=== PATIENT | female | born 1935 | race Caucasian/White ===

== ENCOUNTER 2017-01-11 20:59 | Inpatient (IN) ==
[2017-01-11] MEDS ORDERED: ONDANSETRON 4 MG/2 ML VIAL IV STA (22:07)
[2017-01-11] MEDS ORDERED: CEFTAROLINE 600 MG in SODIUM CHLORIDE 0.9% 100 ML IV STA (22:07)
[2017-01-11] MEDS ORDERED: MORPHINE 2 MG/1 ML SYRINGE IV STA (22:07)
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
[2017-01-11] MEDS ORDERED: MORPHINE 2 MG/1 ML SYRINGE ONE (23:00)
[2017-01-11] MEDS ORDERED: ONDANSETRON 4 MG/2 ML VIAL ONE (23:00)
[2017-01-11] MEDS ORDERED: CEFTAROLINE 600 MG VIAL IV ONE (23:02)
[2017-01-11 23:11] LABS: Basophils # 0.1 10*3/uL (0.0-0.2); Basophils % 0.4 % (0.0-0.8); Eosinophils # 0.5 10*3/uL (0.0-0.87); Eosinophils % 3.5 % (0.00-10.9); Hematocrit 32.1 VOL% (35.7-47.0); Hemoglobin 10.8 GM/DL (12.0-16.0); Immature Granulocytes % 0.4 %; Immature Granulocytes Absolute 0.06 #; Lymphocytes # 2.6 10*3/uL (1.4-4.0); Lymphocytes % 19.3 % (21.3-54.2); Mean Corpuscular HGB Conc 33.6 GM/DL (32-36); Mean Corpuscular Hemoglobin 28 PG (27-34); Mean Corpuscular Volume 83.2 FL (87-102); Mean Platelet Volume 10.4 FL (9.6-12.0); Monocytes # 0.7 10*3/uL (0.11-0.8); Monocytes % 4.9 % (1.7-12.7); Neutrophils # 9.7 10*3/uL (1.4-7.4); Neutrophils % 71.5 % (38.7-73.9); Platelet Count 291 T/CUMM (130-400); Red Blood Count 3.86 MC/CUMM (3.8-5.5); Red Cell Distribution Width 13.9 % (9.3-17.3); White Blood Count 13.6 T/CUMM (4-12)
[2017-01-11 23:27] LABS: PT Patient Result 11.1 SECS
[2017-01-11 23:29] LABS: Alanine Aminotransferase 22 U/L (13-56); Albumin 2.9 G/DL (3.4-5.0); Alkaline Phosphatase 105 U/L (45-117); Aspartate Amino Transferase 31 U/L (0-37); Bilirubin,Total < 0.39 MG/DL (0.2-1.0); Blood Urea Nitrogen 32 MG/DL (7-18); Calcium 8.9 MG/DL (8.5-10.1); Glucose 158 MG/DL (74-106); Osmolality,Calculated 282.8 MOS/KG (273-304); Potassium 3.6 MMOL/L (3.5-5.1); Sodium 137 MMOL/L (136-145); Total Protein 7.3 G/DL (6.4-8.3)
[2017-01-11 23:31] LABS: Troponin I Only < 0.015 NG/ML (0.00-0.045)
[2017-01-11 23:58] LABS: Apearance,Urine CLEAR (Clear); Bilirubin,Urine Negative (Negative); Blood, Urine Small mg/dL (Negative); Glucose,Urine (UA) Negative (Negative); Ketones,Urine Negative (Negative); Mucus,Urine Occasional /LPF (Occasional); Nitrite,Urine Negative (Negative); Protein,Urine Negative; RBC,Urine <1 /HPF (0-4); Urine Color Straw (Yellow); Urine Specific Gravity 1.008 (1.001-1.035); Urine Urobilinogen < 2.0 EU/DL (0.2-1.0); WBC,Urine 3 /HPF (0-6)
[2017-01-12 01:33] LABS: Band Neutrophils 2 % (0-10); Eosinophils 1 % (0-10); Lymphocytes 26 % (20-55); Segmented Neutrophils 65 % (50-85)
[2017-01-12 01:34] LABS: Platelet Estimate Normal; Total Cells Counted 100
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
[2017-01-12] MEDS ORDERED: MORPHINE 2 MG/1 ML SYRINGE IV PRN (01:52)
[2017-01-12] MEDS ORDERED: DEXTROSE 50% 25 GM/50 ML SYRINGE IV PRN (01:52)
[2017-01-12] MEDS ORDERED: ONDANSETRON 4 MG/2 ML VIAL IV PRN (01:52)
[2017-01-12] MEDS ORDERED: GLUCAGON 1 MG VIAL IM PRN (01:52)
[2017-01-12] MEDS: SODIUM CHLORIDE 0.9% 1,000 ML IV SCH ×2 (03:15→21:13)
--- NOTE | 2017-01-12 04:07 | EKG Report ---
Stationary ECG Study [facility] ER Test Date: 01/12/2017 12:02:17 AM Pat Name: AMY GATES Department: Room: 265 Gender: F Tmr Teacher: : 1935 Requested by: Alejandro Andersen Order Number: [id number] Reading MD: NICANOR AL Intervals Jean Rate: 62 P: 50 SD: 199 QRS: -9 QRSD: 94 T: 53 QT: 453 QTc: 458 Interpretive Statements SINUS RHYTHM Electronically Signed On 01-12-17 13:06:14 CDT by NICANOR AL [email or web address]
--- NOTE | 2017-01-12 06:42 | CT Report ---
CT head/brain wo con Indication: Head pain Comparison: None Technique: Multiple axial tomographic images of the brain were obtained without the use of intravenous contrast. Findings: Midline structures are nondisplaced. There is no convincing evidence of acute intracranial hemorrhage . No convincing evidence of hydrocephalus. Moderate global volume loss present. Moderate periventricular and subcortical hypoattenuation noted which is nonspecific but consistent with chronic microvascular ischemic change. Demyelinating process and vasculitis less likely considerations. Atherosclerotic calcifications demonstrated. Large left frontal scalp hematoma which extends to the left periorbital region. The visualized paranasal sinuses and bilateral mastoid air cells are predominantly clear. IMPRESSION: Large left frontal scalp hematoma which extends to the left periorbital region. No acute intracranial hemorrhage. Probable chronic microvascular ischemic change and volume loss. Preliminary report was issued by [facility]. The CT exam was performed using one or more of the following dose reduction techniques: Automated exposure control, adjustment of the mA and/or kV according to patient size, or use of iterative reconstruction technique. PROCEDURE INTERPRETED AT [facility] DEPARTMENT OF RADIOLOGY Final Report Signed by: Dr Tomasz Luis
[2017-01-12 06:45] LABS: Basophils % 0.3 % (0.0-0.8); Eosinophils # 0.5 10*3/uL (0.0-0.87); Hematocrit 28.9 VOL% (35.7-47.0); Hemoglobin 9.6 GM/DL (12.0-16.0); Immature Granulocytes % 0.3 %; Immature Granulocytes Absolute 0.04 #; Lymphocytes # 3.6 10*3/uL (1.4-4.0); Lymphocytes % 27.1 % (21.3-54.2); Mean Corpuscular HGB Conc 33.2 GM/DL (32-36); Mean Corpuscular Hemoglobin 28 PG (27-34); Mean Corpuscular Volume 84.3 FL (87-102); Monocytes # 0.6 10*3/uL (0.11-0.8); Monocytes % 4.7 % (1.7-12.7); Neutrophils # 8.5 10*3/uL (1.4-7.4); Neutrophils % 63.6 % (38.7-73.9); Platelet Count 305 T/CUMM (130-400); Red Blood Count 3.43 MC/CUMM (3.8-5.5); Red Cell Distribution Width 13.7 % (9.3-17.3); White Blood Count 13.3 T/CUMM (4-12)
--- NOTE | 2017-01-12 06:47 | CT Report ---
CT cervical spine wo con Indication: Neck pain Comparison: None Technique: Multiple axial tomographic images of the cervical spine were obtained without the use of intravenous contrast. Coronal and sagittal reformatted images provided. Findings: Straightening of normal cervical lordosis which may be positional or secondary to muscle spasm. 1 mm retrolisthesis of C5 upon C6. 1 mm anterolisthesis of C4 upon C5. 3 mm anterolisthesis of C7 upon T1. Moderate to severe loss of disc space height at C5-6 and C6-7 with mild marginal vertebral body osteophyte formation noted at these levels as well as uncovertebral joint hypertrophy. Moderate neuroforaminal narrowing on the left at C5-6 and C6-7. No gross evidence of significant spinal canal narrowing. Scattered posterior facet arthropathy. Vertebral body heights appear maintained. IMPRESSION: No convincing CT evidence of acute injury involving the osseous cervical spine. Degenerative change and malalignment of the cervical spine as detailed above. Preliminary report was issued by [facility]. The CT exam was performed using one or more of the following dose reduction techniques: Automated exposure control, adjustment of the mA and/or kV according to patient size, or use of iterative reconstruction technique. PROCEDURE INTERPRETED AT [facility] DEPARTMENT OF RADIOLOGY Final Report Signed by: Dr Tomasz Luis
--- NOTE | 2017-01-12 06:54 | CT Report ---
CT facial bones wo con Indication: Fall left side face hematoma Comparison: None Technique: Multiple axial tomographic images of the facial bones were obtained without the use of intravenous contrast. Coronal and sagittal reformatted images provided. Findings: Large left frontal scalp/left periorbital hematoma. No acute facial bone fracture. The visualized paranasal sinuses and bilateral mastoid air cells are predominantly clear. IMPRESSION: No acute facial bone fracture. Preliminary report was issued by [facility]. The CT exam was performed using one or more of the following dose reduction techniques: Automated exposure control, adjustment of the mA and/or kV according to patient size, or use of iterative reconstruction technique. PROCEDURE INTERPRETED AT [facility] DEPARTMENT OF RADIOLOGY Final Report Signed by: Dr Tomasz Luis
[2017-01-12 07:27] LABS: Troponin I Only < 0.015 NG/ML (0.00-0.045)
--- NOTE | 2017-01-12 07:32 | XRay Report ---
XR pelvis AP 1 or 2 Views Indication: Pelvic pain Comparison: None Technique: Single frontal view of the pelvis. Findings: Diffuse osteopenia and body habitus limit examination. No gross evidence of acute fracture. Degenerative change of the lower lumbar spine noted. IMPRESSION: As above. PROCEDURE INTERPRETED AT [facility] DEPARTMENT OF RADIOLOGY Final Report Signed by: Dr Tomasz Luis
--- NOTE | 2017-01-12 07:36 | XRay Report ---
XR chest 1V portable Indication: SOB Comparison: Chest x-ray dated March 28, 2016 Technique: Single frontal view of the chest. Findings: Continued cardiomegaly. There is a nonspecific reticular pattern throughout the bilateral lungs suspicious for interstitial pulmonary edema, interstitial pneumonia, or other interstitial lung disease. Mild right basilar atelectasis/consolidation. Small left pleural fluid not excluded. Visualized osseous and surrounding soft tissue structures appear grossly unchanged. IMPRESSION: As above. PROCEDURE INTERPRETED AT [facility] DEPARTMENT OF RADIOLOGY Final Report Signed by: Dr Tomasz Luis
[2017-01-12 07:37] LABS: Albumin 2.6 G/DL (3.4-5.0); Bilirubin,Total 0.5 MG/DL (0.2-1.0); Calcium 8.5 MG/DL (8.5-10.1); Magnesium 2.1 MG/DL (1.8-2.4); Osmolality,Calculated 286.3 MOS/KG (273-304); Potassium 3.7 MMOL/L (3.5-5.1); Risk Ratio 2.68; Thyroid Stimulating Hormone 1.7 uIU/ml (0.358-3.74); Total Protein 5.7 G/DL (6.4-8.3); VLDL CHOLESTEROL 19.4 MG/DL
--- NOTE | 2017-01-12 08:19 | Ultrasound Report ---
US venous doppler LE BI Indication: Lower extremity pain. Comparison: No relevant comparison.. Technique: Grayscale, spectral, and color Doppler interrogation of the bilateral lower extremity veins was performed. Augmentation and compression was performed. Findings: Grayscale, color Doppler, and pulsed Doppler evaluation of the veins of the bilateral lower extremity demonstrates no evidence of deep venous thrombosis. IMPRESSION: No evidence of deep venous thrombosis in either lower extremity. PROCEDURE INTERPRETED AT [facility] DEPARTMENT OF RADIOLOGY Final Report Signed by: Dr Tomasz Luis
[2017-01-12] MEDS: PANTOPRAZOLE 40 MG TABLET PO SCH (08:41)
[2017-01-12] MEDS: INSULIN REGULAR 100 UNIT/ML SUBCUT SCH ×4 (08:42→21:13)
--- NOTE | 2017-01-12 09:08 | XRay Report ---
Portable chest Date: 01/12/2017 Clinical history: Shortness of breath Comparison: 01/11/2017 Technique: Portable AP sitting chest Findings: Stable cardiomegaly and apparent left cardiac fat pads. Reduced atelectasis in the lungs with less prominent localized eventration of the right hemidiaphragm. Decreased density at the left lung base. Postoperative findings in the left axilla. Stable mediastinum and osseous structures. Impression: Reduced atelectasis with persistent cardiomegaly. PROCEDURE INTERPRETED AT [facility] DEPARTMENT OF RADIOLOGY Final Report Signed by: Dr. Monserrat Foster
--- NOTE | 2017-01-12 09:22 | EKG Report ---
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
[2017-01-12] MEDS ORDERED: SKIN HEALING OINT (AQUAPHOR) 50 GM TUBE TOP PRN (10:19)
[2017-01-12] MEDS: CEFTAROLINE 400 MG in SODIUM CHLORIDE 0.9% 100 ML IV SCH ×2 (11:08→23:09)
[2017-01-12] MEDS: DESITIN 4OZ/NYSTATIN 15 GRAM MIXTURE PASTE TOP SCH ×2 (14:30→22:54)
--- NOTE | 2017-01-12 16:05 | Hospitalist Progress Note ---
Assessment and Plan - Time spent with patient Time spent with patient: Greater than 30 minutes (1) Ground-level mechanical fall Status: Acute Assessment and plan: 01/12/2017: Patient has multiple chronic medical problems that increase her fall risk. She is confident that her fall was not related to syncope or near syncope. She is hesitant to agree to my recommendation to accept swing bed rehabilitation. She is concerned that she will be placed in a skilled nursing and not allowed to return to her home. I interviewed and examined this patient with her granddaughter and 2 sons present at bedside. They will continue to explain the advantages and hopefully convince patient to agree to swing bed rehab. I recommend continued neuro checks, telemetry monitoring, physical and occupational therapy assessment. I reviewed patient's management with hospital wound nurse specialist. No acute fracture or dislocation reported on face CT, C -spine CT, chest x-ray, head CT, pelvic x-rays. Physical and occupational therapy consults requested. I recommend that patient except swing bed rehabilitation. Current Visit: Yes (2) Lymphedema of leg Status: Chronic Assessment and plan: 01/12/2017: Patient reports that she has a lymphedema pump at home but is dissatisfied that does not help reduce leg swelling. She has secondary superficial cellulitis related to scratching anterior tibia surface. Recommend oral antibiotic coverage such as doxycycline or perhaps Septra DS. Current Visit: Yes (3) Cellulitis of left lower extremity Status: Acute Current Visit: Yes (4) Facial contusion Status: Acute Current Visit: Yes (5) Anemia Status: Chronic Current Visit: Yes (6) Stage III chronic kidney disease Status: Acute Current Visit: Yes (7) Type 2 diabetes mellitus Status: Chronic Assessment and plan: 01/12/2017: Hemoglobin A1c measures 10.5%. Patient has normal range TSH (1.7) with slightly increased free T4 level (1.48). Current Visit: Yes Hospitalist: Subjective Interval history: Patient is an 81-year-old female admitted for evaluation after a ground-level mechanical fall. Patient has chronic lymphedema and generalized weakness. Yesterday she stumbled as she tried to quickly walk to answer her telephone. She did strike her head on furniture and she fell. She denies prefall dizziness, lightheadedness, shortness of breath, or chest pain. Patient 's granddaughter, and 2 sons were present at bedside at the time of my interview and exam today. Exam - Constitutional Vitals: Period Temp Pulse Resp BP Sys/Mohan Pulse Ox Last 24 Hr 96.8 F-98.1 F 61-76 12-18 112-151/46-63 87-100 General appearance: morbidly obese - Head Head exam: Present: abrasion, contusion, hematoma, laceration - Eye Eye exam: Present: other (Left parietal scalp and left face hematoma and ecchymosis; no restricted movement of left eye globe.) - Neck Neck exam: Absent: meningismus, tenderness - Respiratory Respiratory exam: Present: clear to auscultation bilaterally. Absent: rales, wheezes - Cardiovascular Cardiovascular exam: Present: regular rate and rhythm - GI/Abdominal GI/Abdominal exam: Present: normal bowel sounds, distended, soft, other (Obese) . Absent: rebound - Extremities Exam Extremities exam: Present: edema, other (Chronic left lower leg lymphedema changes. Patient also has venous stasis dermatitis hyperpigmentation changes both lower legs. She has serosanguineous fluid drainage related to left lower leg lymphedema. Several anterior tibial surface distal segment superficial excoriations). Absent: calf tenderness - Back Exam Back exam: Absent: CVA tenderness (L), CVA tenderness (R) - Neurological Exam Neurological exam: Present: alert, oriented X3 - Psychiatric Psychiatric exam: Present: normal mood - Skin Skin exam: Present: normal color, warm, other (Lymphedema and venous stasis changes as described.) Results - Labs CBC & BMP: 01/12/17 04:48 01/12/17 04:48 - Impressions 01/12/2017: Midline structures are nondisplaced. There is no convincing evidence of acute intracranial hemorrhage . No convincing evidence of hydrocephalus. Moderate global volume loss present. Moderate periventricular and subcortical hypoattenuation noted which is nonspecific but consistent with chronic microvascular ischemic change. Demyelinating process and vasculitis less likely considerations. Atherosclerotic calcifications demonstrated. Large left frontal scalp hematoma which extends to the left periorbital region. The visualized paranasal sinuses and bilateral mastoid air cells are predominantly clear. IMPRESSION: Large left frontal scalp hematoma which extends to the left periorbital region. No acute intracranial hemorrhage. Probable chronic microvascular ischemic change and volume loss. Large left frontal scalp/left periorbital hematoma. No acute facial bone fracture. The visualized paranasal sinuses and bilateral mastoid air cells are predominantly clear. IMPRESSION: No acute facial bone fracture. Straightening of normal cervical lordosis which may be positional or secondary to muscle spasm. 1 mm retrolisthesis of C5 upon C6. 1 mm anterolisthesis of C4 upon C5. 3 mm anterolisthesis of C7 upon T1. Moderate to severe loss of disc space height at C5-6 and C6-7 with mild marginal vertebral body osteophyte formation noted at these levels as well as uncovertebral joint hypertrophy. Moderate neuroforaminal narrowing on the left at C5-6 and C6-7. No gross evidence of significant spinal canal narrowing. Scattered posterior facet arthropathy. Vertebral body heights appear maintained. IMPRESSION: No convincing CT evidence of acute injury involving the osseous cervical spine. Degenerative change and malalignment of the cervical spine as detailed above. Findings: Stable cardiomegaly and apparent left cardiac fat pads. Reduced atelectasis in the lungs with less prominent localized eventration of the right hemidiaphragm. Decreased density at the left lung base. Postoperative findings in the left axilla. Stable mediastinum and osseous structures. Impression: Reduced atelectasis with persistent cardiomegaly. - Diagnostic Findings Procedure: CT: other Quality Measures - VTE Contraindication to Pharmacological VTE Prophylaxis: Already on Theraputic Agent , No Prophylaxis Needed
[2017-01-12] MEDS: DOXYCYCLINE HYCLATE 100 MG CAPSULE PO SCH (21:07)
[2017-01-13 04:33] LABS: Basophils # 0.1 10*3/uL (0.0-0.2); Basophils % 0.6 % (0.0-0.8); Eosinophils # 0.5 10*3/uL (0.0-0.87); Eosinophils % 4.5 % (0.00-10.9); Hematocrit 29.4 VOL% (35.7-47.0); Hemoglobin 9.5 GM/DL (12.0-16.0); Immature Granulocytes % 0.4 %; Immature Granulocytes Absolute 0.04 #; Lymphocytes # 3.7 10*3/uL (1.4-4.0); Lymphocytes % 34.7 % (21.3-54.2); Mean Corpuscular HGB Conc 32.3 GM/DL (32-36); Mean Corpuscular Hemoglobin 28 PG (27-34); Mean Corpuscular Volume 85.7 FL (87-102); Mean Platelet Volume 10.6 FL (9.6-12.0); Monocytes # 0.6 10*3/uL (0.11-0.8); Monocytes % 5.6 % (1.7-12.7); Neutrophils # 5.7 10*3/uL (1.4-7.4); Neutrophils % 54.2 % (38.7-73.9); Platelet Count 251 T/CUMM (130-400); Red Blood Count 3.43 MC/CUMM (3.8-5.5); Red Cell Distribution Width 13.9 % (9.3-17.3); White Blood Count 10.5 T/CUMM (4-12)
[2017-01-13 04:58] LABS: Calcium 8.2 MG/DL (8.5-10.1); Magnesium 2.1 MG/DL (1.8-2.4); Osmolality,Calculated 289.4 MOS/KG (273-304)
--- NOTE | 2017-01-13 08:47 | EKG Report ---
Stationary ECG Study [facility] Test Date: 01/12/2017 4:46:49 PM Pat Name: AMY GATES Department: Room: 265 Gender: F Assistant Plant Control Operator: QUINTEN : [id number] Requested by: Alejandro Andersen Order Number: [id number] Reading MD: NICANOR AL Intervals [place] Rate: 79 P: 26 AK: 193 QRS: 74 QRSD: 93 T: 52 QT: 406 QTc: 441 Interpretive Statements SINUS RHYTHM MINIMAL ST DEPRESSION Electronically Signed On 01-13-17 11:31:21 CDT by NICANOR AL [email or web address]
[2017-01-13] MEDS: INSULIN REGULAR 100 UNIT/ML SUBCUT SCH ×4 (09:13→20:07)
[2017-01-13] MEDS: PANTOPRAZOLE 40 MG TABLET PO SCH (09:13)
[2017-01-13] MEDS: DOXYCYCLINE HYCLATE 100 MG CAPSULE PO SCH ×2 (09:13→20:07)
--- NOTE | 2017-01-13 09:24 | Hospitalist Progress Note ---
Assessment and Plan - Time spent with patient Time spent with patient: Less than 30 minutes (1) Ground-level mechanical fall Status: Acute Assessment and plan: Patient has been evaluated with continued observation. No evidence of fracture or dislocation. She has been seen by physical and Occupational Therapy. Swing bed placement is process. Current Visit: Yes (2) Facial contusion Status: Acute Assessment and plan: Continue local care Current Visit: Yes (3) Stage III chronic kidney disease Status: Chronic Assessment and plan: Stable Current Visit: Yes (4) Lymphedema of leg Status: Chronic Assessment and plan: Oral antibiotic coverage is being continued for superficial cellulitis Current Visit: Yes (5) Type 2 diabetes mellitus Status: Chronic Assessment and plan: Continuing current regimen with good result Current Visit: Yes Hospitalist: Subjective Interval history: 81-year-old white female who had a ground-level mechanical fall. She has chronic lymphedema generalized weakness. She struck her head and sustained multiple contusions. She was admitted to the hospitalist service for further evaluation. She had no neurologic deficits and no fractures were noted. She was evaluated for possible swing bed placement and referral has been made. She states her pain is much better today and she is tolerating her diet. Exam - Constitutional Vitals: Period Temp Pulse Resp BP Sys/Mohan Pulse Ox Last 24 Hr 97.1 F-100 F 71-96 18-22 105-144/37-70 95-100 General appearance: no acute distress - Head Head exam: Present: normocephalic, other (She has multiple ecchymoses of the left face and scalp which are resolving.) - Eye Eye exam: Present: EOMI Pupils: Present: ELLI - Neck Neck exam: Present: normal inspection - Respiratory Respiratory exam: Present: clear to auscultation bilaterally - Cardiovascular Cardiovascular exam: Present: regular rate and rhythm - GI/Abdominal GI/Abdominal exam: Present: normal bowel sounds, soft. Absent: mass, tenderness , rebound - Extremities Exam Extremities exam: Present: edema (Chronic lymphedema of the left lower extremity with skin changes consistent with stasis dermatitis). Absent: calf tenderness - Neurological Exam Neurological exam: Present: alert, oriented X3, CN II-XII intact. Absent: motor sensory deficit - Psychiatric Psychiatric exam: Present: normal affect, normal mood. Absent: agitated, anxious - Skin Skin exam: Present: warm, dry. Absent: erythema Results - Labs CBC & BMP: 01/13/17 03:53 01/13/17 03:53 Lab Results: I have reviewed the past 24 hour labs Quality Measures - VTE Contraindication to Pharmacological VTE Prophylaxis: Already on Theraputic Agent , No Prophylaxis Needed
[2017-01-13] MEDS: DESITIN 4OZ/NYSTATIN 15 GRAM MIXTURE PASTE TOP SCH ×2 (10:12→20:07)
[2017-01-13] MEDS: SODIUM CHLORIDE 0.9% 1,000 ML IV SCH (12:02)
[2017-01-13] MEDS: CEFTAROLINE 400 MG in SODIUM CHLORIDE 0.9% 100 ML IV SCH ×2 (12:43→22:31)
[2017-01-13] MEDS: LACTULOSE 20 GM/30 ML UDCUP PO PRN (13:54)
[2017-01-14] MEDS: SODIUM CHLORIDE 0.9% 1,000 ML IV SCH ×2 (04:41→22:06)
[2017-01-14] MEDS: INSULIN REGULAR 100 UNIT/ML SUBCUT SCH ×4 (08:36→22:03)
[2017-01-14] MEDS: LACTULOSE 20 GM/30 ML UDCUP PO PRN (08:36)
[2017-01-14] MEDS: PANTOPRAZOLE 40 MG TABLET PO SCH (08:36)
[2017-01-14] MEDS: DOXYCYCLINE HYCLATE 100 MG CAPSULE PO SCH ×2 (08:36→20:40)
[2017-01-14] MEDS: DESITIN 4OZ/NYSTATIN 15 GRAM MIXTURE PASTE TOP SCH ×2 (08:37→22:06)
--- NOTE | 2017-01-14 09:20 | Hospitalist Progress Note ---
Assessment and Plan - Time spent with patient Time spent with patient: Less than 30 minutes (1) Ground-level mechanical fall Status: Acute Assessment and plan: Patient has been evaluated with continued observation. No evidence of fracture or dislocation. She has been seen by physical and Occupational Therapy. Swing bed placement is process. Current Visit: Yes (2) Facial contusion Status: Acute Assessment and plan: Continue local care Current Visit: Yes (3) Stage III chronic kidney disease Status: Chronic Assessment and plan: Stable. Follow-up BMP in the a.m. Current Visit: Yes (4) Lymphedema of leg Status: Chronic Assessment and plan: Oral antibiotic coverage is being continued for superficial cellulitis Current Visit: Yes (5) Type 2 diabetes mellitus Status: Chronic Assessment and plan: 01/13/17: Continuing current regimen with good result. 01/14/17: Blood sugars running in the 200s. We will continue to optimize regimen. Current Visit: Yes Hospitalist: Subjective Interval history: Patient is a good spirits this morning. She denies any chest pain, shortness breath, nausea, vomiting, diarrhea, constipation. She ate all of her breakfast without difficulty. Exam - Constitutional Vitals: Period Temp Pulse Resp BP Sys/Mohan Pulse Ox Last 24 Hr 97.2 F-99.4 F 64-73 18-20 122-155/62-94 91-96 General appearance: no acute distress - Head Head exam: Present: normocephalic, other (Resolving ecchymoses in the left face and scalp) - Eye Eye exam: Present: EOMI Pupils: Present: ELLI - Respiratory Respiratory exam: Present: clear to auscultation bilaterally - Cardiovascular Cardiovascular exam: Present: regular rate and rhythm - GI/Abdominal GI/Abdominal exam: Present: normal bowel sounds, soft. Absent: mass, tenderness , rebound - Extremities Exam Extremities exam: Present: edema, other (Chronic lymphedema of left lower extremity with skin changes consistent with stasis dermatitis). Absent: calf tenderness - Neurological Exam Neurological exam: Present: alert, oriented X3, CN II-XII intact. Absent: motor sensory deficit - Psychiatric Psychiatric exam: Present: normal affect, normal mood. Absent: agitated, anxious - Skin Skin exam: Present: warm, dry. Absent: erythema Results - Labs CBC & BMP: 01/13/17 03:53 01/13/17 03:53 Lab Results: I have reviewed the past 24 hour labs Quality Measures - VTE Contraindication to Pharmacological VTE Prophylaxis: Already on Theraputic Agent , No Prophylaxis Needed
[2017-01-14] MEDS: INSULIN NPH/REGULAR 70/30 100 UNIT/ML SUBCUT SCH (10:18)
[2017-01-15] MEDS: DESITIN 4OZ/NYSTATIN 15 GRAM MIXTURE PASTE TOP SCH ×3 (01:50→20:28)
[2017-01-15 05:38] LABS: Basophils # 0.1 10*3/uL (0.0-0.2); Basophils % 0.7 % (0.0-0.8); Eosinophils # 0.8 10*3/uL (0.0-0.87); Eosinophils % 6.5 % (0.00-10.9); Hematocrit 31.6 VOL% (35.7-47.0); Hemoglobin 10.2 GM/DL (12.0-16.0); Immature Granulocytes % 0.3 %; Immature Granulocytes Absolute 0.04 #; Lymphocytes # 2.9 10*3/uL (1.4-4.0); Lymphocytes % 24.9 % (21.3-54.2); Mean Corpuscular HGB Conc 32.3 GM/DL (32-36); Mean Corpuscular Hemoglobin 27 PG (27-34); Mean Corpuscular Volume 84.7 FL (87-102); Mean Platelet Volume 10.1 FL (9.6-12.0); Monocytes # 0.6 10*3/uL (0.11-0.8); Monocytes % 5.5 % (1.7-12.7); Neutrophils # 7.2 10*3/uL (1.4-7.4); Neutrophils % 62.1 % (38.7-73.9); Platelet Count 252 T/CUMM (130-400); Red Blood Count 3.73 MC/CUMM (3.8-5.5); Red Cell Distribution Width 13.5 % (9.3-17.3); White Blood Count 11.5 T/CUMM (4-12)
[2017-01-15 06:06] LABS: Calcium 8.7 MG/DL (8.5-10.1); Osmolality,Calculated 283.3 MOS/KG (273-304); Potassium 4.1 MMOL/L (3.5-5.1)
[2017-01-15] MEDS: INSULIN REGULAR 100 UNIT/ML SUBCUT SCH ×4 (09:01→20:28)
[2017-01-15] MEDS: DOXYCYCLINE HYCLATE 100 MG CAPSULE PO SCH ×2 (09:01→20:27)
[2017-01-15] MEDS: PANTOPRAZOLE 40 MG TABLET PO SCH (09:01)
[2017-01-15] MEDS: INSULIN NPH/REGULAR 70/30 100 UNIT/ML SUBCUT SCH (09:04)
[2017-01-15] MEDS ORDERED: TUBERCULIN SKIN TEST 0.1 ML SYRINGE INTRADERM ONE (11:13)
[2017-01-15] MEDS ORDERED: NITROGLYCERIN SL 0.4 MG TABLET SL PRN (11:33)
[2017-01-15] MEDS ORDERED: guaiFENesin/CODEINE 5 ML LIQUID PO PRN (11:43)
[2017-01-15] MEDS ORDERED: FLUTICASONE IH SCH (11:45)
[2017-01-15] MEDS ORDERED: SALMETEROL IH SCH (11:45)
--- NOTE | 2017-01-15 11:50 | Hospitalist Progress Note ---
Assessment and Plan (1) Fall Status: Acute Assessment and plan: The patient will continue with physical and occupational therapy. We hope to have arrangements for swing bed tomorrow on the following day. I reviewed the patient's home medicines and reconciled those the patient's family requested more cough medicine so I offered Robitussin-AC. Current Visit: Yes (2) Cellulitis of left lower extremity Status: Acute Current Visit: Yes (3) Type 2 diabetes mellitus Status: Chronic Current Visit: Yes Hospitalist: Subjective Interval history: The patient is resting comfortably in the room. The patient has considerable contusion on the left face. The patient is reluctant to participate with therapy. The patient apparently was able to do occupational therapy today and physical therapy will be next. I coordinate care with the foster care case manager and he is in contact with swing bed at [facility] as well as sending information to nursing homes in the city. We hope to have arrangements complete and ready for discharge tomorrow. Exam - Constitutional Vitals: Period Temp Pulse Resp BP Sys/Mohan Pulse Ox Last 24 Hr 97.0 F-98.4 F 62-72 18-20 134-159/59-77 92-96 Exam: Constitutional System: Minimal distress. No tremulousness. Head: Normocephalic, atraumatic. Ears, Nose and Throat System: No evidence of Otitis or Mastoiditis. No epistaxis or discharge Eyes System: Pupils equal, round, and reactive. Extraocular muscles intact. Neck: Supple, without adenopathy, No jugular venous distention. No thyromegaly , neck mass, or prior surgery apparent. Respiratory System: Chest clear to auscultation. Cardiovascular System: Heart with regular rate and rhythm. No murmur. GI System: Abdomen soft, obese, nontender. Normo active bowel sounds present. Musculoskeletal System: limbs with 2+ pedal edema. Full distal pulses. Healing wounds on the left lower extremity between the knee and the ankle Neurological System: No discernable sensory deficit. No aphasia Psychiatric System: Conversation is rational Results - Labs CBC & BMP: 01/15/17 05:22 01/15/17 05:22 Lab Results: I have reviewed the past 24 hour labs Quality Measures - VTE Contraindication to Pharmacological VTE Prophylaxis: Already on Theraputic Agent , No Prophylaxis Needed
[2017-01-15] MEDS: APIXABAN 5 MG TABLET PO SCH (13:03)
[2017-01-15] MEDS: ASPIRIN 325 MG TABLET PO SCH (13:03)
--- NOTE | 2017-01-15 13:13 | Case Mgmt Physician Query Form ---
TB Signs and Symptoms Screening ([place]) INSTRUCTIONS: To be completed annually on residents/staff with a significant Tuberculin Skin Test (TST) upon admission/hire or a prior significant TST. To be completed on all staff at hire. Please respond to each listed symptom with an (X) in either the "YES" or "NO" box. Do you currently have any of the following symptoms: YES NO ( ) (X ) A cough If yes, is it: ( ) Productive ( ) Non- productive ( ) (X ) Hemoptysis (spitting up blood) ( ) (X ) Chest pains ( ) ( X) Weight Loss ( ) (X ) Fever ( ) (X ) Night Sweats ( ) ( X) Weakness ( ) (X ) Loss of Appetite ( ) (X ) Difficulty Breathing If you answered YES" to any of the above questions, how long have symptoms been present? Comments: If you have any questions, please contact me. thank you, Kelvin Major RN Case Manager O:[phone] P: [phone] F: [phone] [email or web address]
[2017-01-15] MEDS: SODIUM CHLORIDE 0.9% 1,000 ML IV SCH (16:59)
[2017-01-15] MEDS: glipiZIDE 10 MG TABLET PO SCH (20:28)
[2017-01-15] MEDS ORDERED: ROSUVASTATIN 10 MG TABLET PO SCH (21:00)
[2017-01-16] MEDS: SODIUM CHLORIDE 0.9% 1,000 ML IV SCH (07:01)
[2017-01-16] MEDS: APIXABAN 5 MG TABLET PO SCH (08:34)
[2017-01-16] MEDS: ASPIRIN 325 MG TABLET PO SCH (08:34)
[2017-01-16] MEDS: glipiZIDE 10 MG TABLET PO SCH (08:34)
[2017-01-16] MEDS: DOXYCYCLINE HYCLATE 100 MG CAPSULE PO SCH (08:35)
[2017-01-16] MEDS: INSULIN NPH/REGULAR 70/30 100 UNIT/ML SUBCUT SCH (08:35)
[2017-01-16] MEDS: PANTOPRAZOLE 40 MG TABLET PO SCH (08:35)
[2017-01-16] MEDS: INSULIN REGULAR 100 UNIT/ML SUBCUT SCH ×2 (08:39→12:11)
[2017-01-16] MEDS: DESITIN 4OZ/NYSTATIN 15 GRAM MIXTURE PASTE TOP SCH (08:39)
[2017-01-16] MEDS ORDERED: MULTIVITAMIN (OCUVITE) TABLET PO SCH (09:00)
[2017-01-16] MEDS ORDERED: SERTRALINE 100 MG TABLET PO SCH (09:00)
[2017-01-16] MEDS ORDERED: NEBIVOLOL 5 MG TABLET PO SCH (09:00)
[2017-01-16 12:04] VITALS: BP 145/61
--- NOTE | 2017-01-16 13:28 | Discharge Summary ---
Hospital Course - Hospital Course Hospital Course: Ms. Marie is a 81 year old female with past medical history of peripheral vascular disease, lymphedema, history of blood clot, coronary artery disease, and breast cancer who has not been herself for the past week. Patient's family reports that normally she is not that confused but lately has been more confused. She went to go see her doctor in he said that she had a urinary tract infection. She normally sleeps in a recliner. She lives with her family. Today she was left alone approximately 2 hours and her family found her on the floor. They brought up here for further evaluation she has a significant hematoma to the right side of her face. The workup in the ER was negative for fractures. The patient was evaluated and not found to have any new stroke or heart attack. We started physical therapy. Medications were adjusted. The patient's now improved and ready for transfer to swing bed where she can hopefully be mobilized and returned to semi-independent living with her family at home. On the date of discharge, chest is clear and abdomen soft. The patient was screened for tobacco use and found to be a never smoker. She was given 4 minutes tobacco avoidance education. The patient's medications were reconciled upon admission and again upon discharge. The patient is her own medical decision maker and wishes to be full code. Discharge visit required 34 minutes for [id number] evaluation, education, preparation of prescriptions and documentation - Time spent with patient Time with patient DS: Greater than 30 minutes Time spent discussing smoking cessation with patient: 3 to 10 minutes Diagnosis - Discharge Diagnosis (1) Fall Status: Resolved (2) Cellulitis of left lower extremity Status: Chronic (3) Type 2 diabetes mellitus Status: Chronic Discharge Plan - Discharge Data Disposition: Disch/Xfer to Snf Condition at Discharge: Stable Discharge Diet: heart healthy Activity: resume usual activities as tolerated, as per physical therapy - Discharge Medications New guaiFENesin/CODEINE [Robitussin AC] 5 ml PO Q6H PRN #60 ml PRN Reason: Cough Doxycycline Hyclate Cap [Vibramycin Cap] 100 mg PO BID #14 capsule Continue Vit C/Vit E AC/Lut/Copper/Zinc [Preservision Lutein Softgel] 1 each PO DAILY Sertraline [Zoloft] 100 mg PO DAILY Pregabalin [Lyrica] 75 mg PO BID Omeprazole [Prilosec] 20 mg PO DAILY Furosemide Tab [Lasix Tab] 20 mg PO DAILY Potassium Chloride [Klor-Con 10] 10 meq PO DAILY Insulin NPH/Regular 70/30 [HumuLIN 70/30] 25 unit SUBCUT QAM Rosuvastatin [Crestor] 10 mg PO BEDTIME glipiZIDE [Glipizide] 10 mg PO BID Nebivolol [Bystolic] 5 mg PO DAILY Aspirin/Calcium Carbonate/Mag [Aspirin Buffered 325 mg Tab] 325 mg PO DAILY Fluticasone/Salmeterol [Advair Hfa 115-21 Mcg Inhaler] 12 gm IH BID Nitroglycerin [Nitroglycerin SL Tab] 0.4 mg SL Q5M PRN PRN Reason: Angina Insulin NPH/Regular 70/30 [HumuLIN 70/30] 10 unit SUBCUT DAILY W/SUPPER Apixaban [Eliquis] 5 mg PO DAILY Discontinued sitaGLIPtin [Januvia] 100 mg PO DAILY Oxybutynin Chloride [Oxybutynin Chloride ER] 10 mg PO DAILY Sulfameth/Trimeth 800-160 Tab [Bactrim DS Tab] 1 tablet PO BID - Follow Up or Referral - Forms/Instructions Exam - Constitutional Vitals: Period Temp Pulse Resp BP Sys/Mohan Pulse Ox Last 24 Hr 96.9 F-98.2 F 63-75 16-20 124-191/60-104 18-100 Discharge Results Procedures and tests throughout hospitalization: Pending Orders 01/11/17 21:16 Blood Culture Stat Labs on day of discharge: Labs from last 24 hours 01/16/17 01/16/17 01/15/17 11:23 07:57 19:23 POC Glucose 199 H 106 327 H 01/15/17 15:22 POC Glucose 270 H Preliminary micro results at discharge 01/11/17 21:16 Blood Culture - Preliminary Blood No growth at 3 days 01/11/17 21:16 Blood Culture - Preliminary Blood No growth at 3 days DS: Provider Date of admission: 01/12/17 00:42 Primary care physician: . No PCP Attending physician on admission: Lalo Landry MD Consults: 01/12/17 01:52 Consult to Case Mgmt/Social Srvs [CONS] Routine Reason for Case Mgmt/Social Srvs: Discharge Planning Consult to Wound Care - [place] [CONS] Routine Reason for Wound Care: Wound Care Management 01/12/17 10:01 Consult to Case Mgmt/Social Srvs [CONS] Routine Reason for Case Mgmt/Social Srvs: Swingbed/SNF/Fdc 01/12/17 10:05 Consult to Physical Therapy [CONS] Routine Reason for Physical Therapy: Evaluate and Treat 01/12/17 10:06 OT [Consult to Occupational Therapy] [CONS] Routine Reason for Occupational Therapy: Evaluate and Treat Discharging clinician: Bryant Win MD
== END 2017-01-16 14:45 | DRG 605 ==
LOC: EDBD → EDUNIT# → N.ED 20:59 → SUATTDRO 01-12 00:42 → N.EDINP 01-12 00:42 → N.TELES 01-12 00:58
PROVIDERS: ADMIT Internal Medicine; ATTEND Internal Medicine

== ENCOUNTER 2017-09-03 11:22 | Inpatient (IN) ==
[2017-09-03] MEDS ORDERED: MORPHINE 2 MG/1 ML SYRINGE IV STA (13:43)
[2017-09-03] MEDS ORDERED: ASPIRIN 325 MG TABLET PO STA ×2 (13:43→19:03)
[2017-09-03] MEDS ORDERED: FUROSEMIDE 100 MG/10 ML VIAL IV STA (13:43)
[2017-09-03] MEDS ORDERED: NITROGLYCERIN 2% OINT 1 INCH/GM PACK TOP STA (13:43)
[2017-09-03] MEDS ORDERED: ONDANSETRON 4 MG/2 ML VIAL IV STA (13:43)
[2017-09-03 13:51] LABS: Basophils # 0.1 10*3/uL (0.0-0.2); Basophils % 0.6 % (0.0-0.8); Eosinophils # 0.2 10*3/uL (0.0-0.87); Eosinophils % 1.7 % (0.00-10.9); Hemoglobin 11.9 GM/DL (12.0-16.0); Immature Granulocytes % 0.2 %; Immature Granulocytes Absolute 0.02 #; Lymphocytes # 1.6 10*3/uL (1.4-4.0); Mean Corpuscular HGB Conc 30.5 GM/DL (32-36); Mean Corpuscular Hemoglobin 27 PG (27-34); Mean Corpuscular Volume 87.6 FL (87-102); Mean Platelet Volume 11.3 FL (9.6-12.0); Monocytes # 0.4 10*3/uL (0.11-0.8); Monocytes % 4.1 % (1.7-12.7); Neutrophils # 6.6 10*3/uL (1.4-7.4); Neutrophils % 75.4 % (38.7-73.9); Platelet Count 208 T/CUMM (130-400); Red Blood Count 4.45 MC/CUMM (3.8-5.5); Red Cell Distribution Width 17.5 % (9.3-17.3); White Blood Count 8.8 T/CUMM (4-12)
[2017-09-03 13:58] LABS: INR 1.1; PT Patient Result 11.5 SECS
[2017-09-03] MEDS ORDERED: ASPIRIN 325 MG TABLET ONE ×2 (13:59→21:15)
[2017-09-03] MEDS ORDERED: FUROSEMIDE 100 MG/10 ML VIAL ONE (13:59)
[2017-09-03] MEDS ORDERED: MORPHINE 4 MG/1 ML VIAL ONE (14:00)
[2017-09-03] MEDS ORDERED: ALBUTEROL NEB SOLN 5 MG/ML 20 ML/BOTTLE RESP TX SCH (14:00)
[2017-09-03] MEDS ORDERED: NITROGLYCERIN 2% OINT 1 INCH/GM PACK TOP ONE (14:00)
[2017-09-03] MEDS ORDERED: ONDANSETRON 4 MG/2 ML VIAL ONE (14:01)
[2017-09-03 14:09] LABS: Albumin 3.8 G/DL (3.4-5.0); Bilirubin,Total 0.5 MG/DL (0.2-1.0); Calcium 8.9 MG/DL (8.5-10.1); Osmolality,Calculated 289.7 MOS/KG (273-304); Potassium 4.4 MMOL/L (3.5-5.1); Total Protein 7.7 G/DL (6.4-8.3); Troponin I Only 0.204 NG/ML (0.00-0.045)
[2017-09-03] MEDS ORDERED: MAGNESIUM SULF RIDER 2 GM in PREMIX 1 EACH IV STA (14:14)
[2017-09-03] MEDS ORDERED: MAGNESIUM SULF RIDER 50 ML IV ONE (14:39)
[2017-09-03 17:48] LABS: Apearance,Urine CLEAR (Clear); Bacteria,Urine Few /HPF (Few); Bilirubin,Urine Negative (Negative); Blood, Urine Small mg/dL (Negative); Glucose,Urine (UA) Negative (Negative); Hyaline Casts,Urine 5 /LPF (0-3); Ketones,Urine Negative (Negative); Mucus,Urine Occasional /LPF (Occasional); Nitrite,Urine Positive (Negative); Protein,Urine Negative; RBC,Urine 1 /HPF (0-4); Urine Color Yellow (Yellow); Urine Specific Gravity 1.012 (1.001-1.035); Urine Urobilinogen < 2.0 EU/DL (0.2-1.0); WBC,Urine <1 /HPF (0-6)
[2017-09-03] MEDS ORDERED: ONDANSETRON 4 MG/2 ML VIAL IV PRN (18:47)
[2017-09-03] MEDS ORDERED: MAGNESIUM SULF RIDER 2 GM in PREMIX 1 EACH IV PRN (18:47)
[2017-09-03] MEDS ORDERED: LACTULOSE 20 GM/30 ML UDCUP PO PRN (18:47)
[2017-09-03] MEDS ORDERED: MAGNESIUM SULF RIDER 4 GM in PREMIX 1 EACH IV PRN (18:47)
[2017-09-03] MEDS ORDERED: DEXTROSE 50% 25 GM/50 ML VIAL IV PRN (18:47)
[2017-09-03] MEDS ORDERED: GLUCAGON 1 MG VIAL IM PRN (18:47)
[2017-09-03] MEDS ORDERED: ACETAMINOPHEN 325 MG TABLET PO PRN (18:47)
[2017-09-03] MEDS ORDERED: DOCUSATE SODIUM 100 MG CAPSULE PO PRN (18:47)
[2017-09-03] MEDS ORDERED: MORPHINE 4 MG/1 ML VIAL IV PRN (18:47)
[2017-09-03] MEDS ORDERED: POTASSIUM CHLORIDE 10 MEQ TABLET PO PRN (18:51)
[2017-09-03] MEDS ORDERED: FUROSEMIDE 40 MG/4 ML VIAL ONE (21:15)
[2017-09-03] MEDS: FUROSEMIDE 40 MG/4 ML VIAL IV SCH (22:00)
[2017-09-03] MEDS: INSULIN LISPRO 100 UNIT/ML SUBCUT SCH (22:27)
[2017-09-03] MEDS: ROSUVASTATIN 10 MG TABLET PO SCH (22:47)
[2017-09-04 04:03] LABS: Basophils % 0.4 % (0.0-0.8); Eosinophils # 0.2 10*3/uL (0.0-0.87); Eosinophils % 2.1 % (0.00-10.9); Hematocrit 32.3 VOL% (35.7-47.0); Hemoglobin 10.1 GM/DL (12.0-16.0); Immature Granulocytes % 0.3 %; Immature Granulocytes Absolute 0.02 #; Lymphocytes # 1.5 10*3/uL (1.4-4.0); Lymphocytes % 21.3 % (21.3-54.2); Mean Corpuscular HGB Conc 31.3 GM/DL (32-36); Mean Corpuscular Hemoglobin 27 PG (27-34); Mean Corpuscular Volume 86.6 FL (87-102); Mean Platelet Volume 11.5 FL (9.6-12.0); Monocytes # 0.4 10*3/uL (0.11-0.8); Neutrophils # 4.9 10*3/uL (1.4-7.4); Neutrophils % 69.9 % (38.7-73.9); Platelet Count 169 T/CUMM (130-400); Red Blood Count 3.73 MC/CUMM (3.8-5.5); Red Cell Distribution Width 17.8 % (9.3-17.3)
[2017-09-04 04:21] LABS: Calcium 8.2 MG/DL (8.5-10.1); Osmolality,Calculated 293.3 MOS/KG (273-304); Potassium 4.4 MMOL/L (3.5-5.1); Risk Ratio 1.8; VLDL CHOLESTEROL 17.8 MG/DL
[2017-09-04 04:32] LABS: Troponin I Only 0.135 NG/ML (0.00-0.045)
[2017-09-04] MEDS ORDERED: ASPIRIN 325 MG TABLET ONE (09:15)
[2017-09-04] MEDS ORDERED: FUROSEMIDE 40 MG/4 ML VIAL ONE (09:15)
[2017-09-04] MEDS ORDERED: PANTOPRAZOLE 40 MG TABLET PO ONE (09:15)
[2017-09-04] MEDS ORDERED: INSULIN REGULAR 100 UNIT/ML ONE (09:17)
[2017-09-04] MEDS: FUROSEMIDE 40 MG/4 ML VIAL IV SCH ×2 (09:21→16:20)
[2017-09-04] MEDS ORDERED: INSULIN LISPRO 100 UNIT/ML ONE ×2 (09:25→12:25)
[2017-09-04] MEDS: INSULIN LISPRO 100 UNIT/ML SUBCUT SCH ×4 (09:26→21:27)
[2017-09-04] MEDS: SERTRALINE 100 MG TABLET PO SCH (09:29)
[2017-09-04] MEDS: PANTOPRAZOLE 40 MG TABLET PO SCH (09:29)
[2017-09-04] MEDS: NEBIVOLOL 5 MG TABLET PO SCH (09:29)
[2017-09-04] MEDS: ASPIRIN EC 325 MG TABLET PO SCH (09:30)
[2017-09-04] MEDS: ISOSORBIDE MONONITRATE 30 MG TABLET PO SCH (11:50)
[2017-09-04] MEDS: ROSUVASTATIN 10 MG TABLET PO SCH (21:20)
[2017-09-05 06:56] LABS: Basophils # 0.1 10*3/uL (0.0-0.2); Basophils % 0.6 % (0.0-0.8); Eosinophils # 0.2 10*3/uL (0.0-0.87); Eosinophils % 2.2 % (0.00-10.9); Hematocrit 32.7 VOL% (35.7-47.0); Hemoglobin 9.8 GM/DL (12.0-16.0); Immature Granulocytes % 0.4 %; Immature Granulocytes Absolute 0.03 #; Lymphocytes # 1.7 10*3/uL (1.4-4.0); Lymphocytes % 20.7 % (21.3-54.2); Mean Corpuscular Hemoglobin 26 PG (27-34); Mean Corpuscular Volume 88.1 FL (87-102); Mean Platelet Volume 11.4 FL (9.6-12.0); Monocytes # 0.6 10*3/uL (0.11-0.8); Neutrophils # 5.7 10*3/uL (1.4-7.4); Neutrophils % 69.1 % (38.7-73.9); Platelet Count 170 T/CUMM (130-400); Red Blood Count 3.71 MC/CUMM (3.8-5.5); Red Cell Distribution Width 17.6 % (9.3-17.3); White Blood Count 8.3 T/CUMM (4-12)
[2017-09-05 07:31] LABS: Calcium 8.6 MG/DL (8.5-10.1); Osmolality,Calculated 289.4 MOS/KG (273-304); Potassium 4.1 MMOL/L (3.5-5.1)
[2017-09-05] MEDS: NEBIVOLOL 5 MG TABLET PO SCH (09:36)
[2017-09-05] MEDS: INSULIN LISPRO 100 UNIT/ML SUBCUT SCH ×4 (09:36→21:19)
[2017-09-05] MEDS: SERTRALINE 100 MG TABLET PO SCH (09:36)
[2017-09-05] MEDS: ASPIRIN EC 325 MG TABLET PO SCH (09:36)
[2017-09-05] MEDS: PANTOPRAZOLE 40 MG TABLET PO SCH (09:36)
[2017-09-05] MEDS: ISOSORBIDE MONONITRATE 30 MG TABLET PO SCH (09:36)
[2017-09-05] MEDS: FUROSEMIDE 40 MG/4 ML VIAL IV SCH ×3 (09:37→20:30)
[2017-09-05] MEDS ORDERED: ALBUTEROL/IPRATROPIUM 3 ML NEB RESP TX PRN (09:46)
[2017-09-05] MEDS: ALBUTEROL/IPRATROPIUM 3 ML NEB RESP TX SCH ×2 (13:30→19:39)
[2017-09-05] MEDS: cefTRIAXone 1,000 MG in SYRINGE 1 EACH IV SCH (13:47)
[2017-09-05] MEDS ORDERED: POTASSIUM CHLORIDE RIDER 10 MEQ in PREMIX 1 EACH IV PRN (17:23)
[2017-09-05] MEDS: ROSUVASTATIN 10 MG TABLET PO SCH (20:30)
[2017-09-06] MEDS: ALBUTEROL/IPRATROPIUM 3 ML NEB RESP TX SCH ×4 (01:54→19:34)
[2017-09-06 05:48] LABS: Basophils # 0.1 10*3/uL (0.0-0.2); Basophils % 0.6 % (0.0-0.8); Eosinophils # 0.2 10*3/uL (0.0-0.87); Eosinophils % 2.4 % (0.00-10.9); Hemoglobin 10.7 GM/DL (12.0-16.0); Immature Granulocytes % 0.4 %; Immature Granulocytes Absolute 0.04 #; Lymphocytes # 1.8 10*3/uL (1.4-4.0); Lymphocytes % 19.8 % (21.3-54.2); Mean Corpuscular HGB Conc 30.6 GM/DL (32-36); Mean Corpuscular Hemoglobin 27 PG (27-34); Mean Corpuscular Volume 87.9 FL (87-102); Mean Platelet Volume 11.5 FL (9.6-12.0); Monocytes # 0.5 10*3/uL (0.11-0.8); Monocytes % 5.5 % (1.7-12.7); Neutrophils # 6.5 10*3/uL (1.4-7.4); Neutrophils % 71.3 % (38.7-73.9); Platelet Count 170 T/CUMM (130-400); Red Blood Count 3.98 MC/CUMM (3.8-5.5); Red Cell Distribution Width 17.6 % (9.3-17.3); White Blood Count 9.1 T/CUMM (4-12)
[2017-09-06 06:24] LABS: Calcium 8.5 MG/DL (8.5-10.1); Osmolality,Calculated 289.4 MOS/KG (273-304); Potassium 3.7 MMOL/L (3.5-5.1)
[2017-09-06] MEDS: FUROSEMIDE 40 MG/4 ML VIAL IV SCH ×2 (08:22→16:23)
[2017-09-06] MEDS ORDERED: diphenhydrAMINE CAP 25 MG CAPSULE PO ONE (09:00)
[2017-09-06] MEDS ORDERED: DIAZEPAM 5 MG TABLET PO ONE (09:00)
[2017-09-06] MEDS: NITROGLYCERIN SL 0.4 MG TABLET SL PRN ×2 (10:43→10:48)
[2017-09-06] MEDS: cefTRIAXone 1,000 MG in SYRINGE 1 EACH IV SCH (11:38)
[2017-09-06] MEDS: ISOSORBIDE MONONITRATE 30 MG TABLET PO SCH (11:38)
[2017-09-06] MEDS: ASPIRIN EC 325 MG TABLET PO SCH (11:38)
[2017-09-06] MEDS: NEBIVOLOL 5 MG TABLET PO SCH (11:39)
[2017-09-06] MEDS: PANTOPRAZOLE 40 MG TABLET PO SCH (11:39)
[2017-09-06] MEDS: INSULIN LISPRO 100 UNIT/ML SUBCUT SCH ×4 (11:39→20:56)
[2017-09-06] MEDS: SERTRALINE 100 MG TABLET PO SCH (11:39)
[2017-09-06] MEDS ORDERED: VERAPAMIL 5 MG/2 ML VIAL ONE (12:27)
[2017-09-06] MEDS ORDERED: NITROGLYCERIN DRIP 50 MG/250 ML BOTTLE IV ONE (12:27)
[2017-09-06] MEDS ORDERED: MIDAZOLAM 2 MG/2 ML VIAL ONE (12:32)
[2017-09-06] MEDS ORDERED: HYDROmorphone 2 MG/1 ML VIAL ONE (12:32)
[2017-09-06] MEDS ORDERED: ENOXAPARIN 60 MG/0.6 ML SYRINGE ONE (12:47)
[2017-09-06] MEDS: ROSUVASTATIN 10 MG TABLET PO SCH (20:54)
[2017-09-07] MEDS: ALBUTEROL/IPRATROPIUM 3 ML NEB RESP TX SCH ×4 (00:52→19:12)
[2017-09-07 02:40] LABS: Basophils % 0.4 % (0.0-0.8); Eosinophils # 0.1 10*3/uL (0.0-0.87); Eosinophils % 1.2 % (0.00-10.9); Hematocrit 32.4 VOL% (35.7-47.0); Hemoglobin 9.7 GM/DL (12.0-16.0); Immature Granulocytes % 0.3 %; Immature Granulocytes Absolute 0.02 #; Lymphocytes # 1.3 10*3/uL (1.4-4.0); Mean Corpuscular HGB Conc 29.9 GM/DL (32-36); Mean Corpuscular Hemoglobin 27 PG (27-34); Mean Corpuscular Volume 88.5 FL (87-102); Mean Platelet Volume 11.4 FL (9.6-12.0); Monocytes # 0.5 10*3/uL (0.11-0.8); Monocytes % 6.3 % (1.7-12.7); Neutrophils # 5.7 10*3/uL (1.4-7.4); Neutrophils % 74.8 % (38.7-73.9); Platelet Count 166 T/CUMM (130-400); Red Blood Count 3.66 MC/CUMM (3.8-5.5); Red Cell Distribution Width 17.7 % (9.3-17.3); White Blood Count 7.6 T/CUMM (4-12)
[2017-09-07 03:24] LABS: Calcium 8.3 MG/DL (8.5-10.1); Osmolality,Calculated 292.3 MOS/KG (273-304); Potassium 3.7 MMOL/L (3.5-5.1)
[2017-09-07] MEDS: ISOSORBIDE MONONITRATE 30 MG TABLET PO SCH (09:31)
[2017-09-07] MEDS: NEBIVOLOL 5 MG TABLET PO SCH (09:32)
[2017-09-07] MEDS: FUROSEMIDE 40 MG/4 ML VIAL IV SCH ×3 (09:32→20:59)
[2017-09-07] MEDS: PANTOPRAZOLE 40 MG TABLET PO SCH (09:32)
[2017-09-07] MEDS: SERTRALINE 100 MG TABLET PO SCH (09:32)
[2017-09-07] MEDS: cefTRIAXone 1,000 MG in SYRINGE 1 EACH IV SCH ×2 (09:32→12:55)
[2017-09-07] MEDS: ASPIRIN EC 325 MG TABLET PO SCH (09:32)
[2017-09-07] MEDS: INSULIN LISPRO 100 UNIT/ML SUBCUT SCH ×4 (09:33→20:58)
[2017-09-07] MEDS ORDERED: SODIUM PHOSPHATE ENEMA 133 ML BOTTLE RECTAL ONE (16:46)
[2017-09-07] MEDS: ROSUVASTATIN 20 MG TABLET PO SCH (20:59)
[2017-09-08] MEDS: ALBUTEROL/IPRATROPIUM 3 ML NEB RESP TX SCH ×5 (00:11→19:53)
[2017-09-08 04:51] LABS: Basophils % 0.5 % (0.0-0.8); Eosinophils # 0.2 10*3/uL (0.0-0.87); Eosinophils % 2.8 % (0.00-10.9); Hematocrit 32.1 VOL% (35.7-47.0); Hemoglobin 9.9 GM/DL (12.0-16.0); Immature Granulocytes % 0.4 %; Immature Granulocytes Absolute 0.03 #; Lymphocytes # 1.6 10*3/uL (1.4-4.0); Lymphocytes % 18.7 % (21.3-54.2); Mean Corpuscular HGB Conc 30.8 GM/DL (32-36); Mean Corpuscular Hemoglobin 27 PG (27-34); Mean Corpuscular Volume 86.5 FL (87-102); Mean Platelet Volume 11.4 FL (9.6-12.0); Monocytes # 0.6 10*3/uL (0.11-0.8); Monocytes % 6.6 % (1.7-12.7); Platelet Count 173 T/CUMM (130-400); Red Blood Count 3.71 MC/CUMM (3.8-5.5); Red Cell Distribution Width 17.7 % (9.3-17.3); White Blood Count 8.5 T/CUMM (4-12)
[2017-09-08 05:20] LABS: Calcium 8.2 MG/DL (8.5-10.1); Osmolality,Calculated 288.7 MOS/KG (273-304); Potassium 3.4 MMOL/L (3.5-5.1)
[2017-09-08] MEDS ORDERED: ENOXAPARIN 80 MG/0.8 ML SYRINGE SUBCUT SCH (10:00)
[2017-09-08] MEDS: FUROSEMIDE 40 MG/4 ML VIAL IV SCH ×3 (10:02→18:39)
[2017-09-08] MEDS: ISOSORBIDE MONONITRATE 30 MG TABLET PO SCH (10:03)
[2017-09-08] MEDS: ASPIRIN EC 325 MG TABLET PO SCH (10:03)
[2017-09-08] MEDS: SERTRALINE 100 MG TABLET PO SCH (10:03)
[2017-09-08] MEDS: NEBIVOLOL 5 MG TABLET PO SCH (10:04)
[2017-09-08] MEDS: cefTRIAXone 1,000 MG in SYRINGE 1 EACH IV SCH (10:04)
[2017-09-08] MEDS: INSULIN LISPRO 100 UNIT/ML SUBCUT SCH ×4 (10:07→21:41)
[2017-09-08] MEDS ORDERED: CLORAZEPATE 3.75 MG TABLET PO PRN (10:07)
[2017-09-08] MEDS: PANTOPRAZOLE 40 MG TABLET PO SCH (10:11)
[2017-09-08] MEDS: NYSTATIN 500,000 UNIT/5 ML UDCUP SWISH/SWAL SCH ×2 (17:22→21:40)
[2017-09-08] MEDS: ROSUVASTATIN 20 MG TABLET PO SCH (21:40)
[2017-09-08] MEDS: POLYETHYLENE GLYCOL POWDER 17 GM PACK PO SCH (21:40)
[2017-09-08] MEDS: LACTULOSE 20 GM/30 ML UDCUP PO SCH (21:40)
[2017-09-08] MEDS: DOCUSATE SODIUM 100 MG CAPSULE PO SCH (21:41)
[2017-09-09] MEDS: ALBUTEROL/IPRATROPIUM 3 ML NEB RESP TX SCH ×4 (01:24→20:00)
[2017-09-09 04:25] LABS: Basophils % 0.5 % (0.0-0.8); Eosinophils # 0.5 10*3/uL (0.0-0.87); Eosinophils % 5.7 % (0.00-10.9); Hemoglobin 10.2 GM/DL (12.0-16.0); Immature Granulocytes % 0.5 %; Immature Granulocytes Absolute 0.04 #; Lymphocytes % 12.3 % (21.3-54.2); Mean Corpuscular HGB Conc 31.9 GM/DL (32-36); Mean Corpuscular Hemoglobin 27 PG (27-34); Mean Corpuscular Volume 85.8 FL (87-102); Mean Platelet Volume 11.7 FL (9.6-12.0); Monocytes # 0.6 10*3/uL (0.11-0.8); Monocytes % 6.7 % (1.7-12.7); NRBC # 0.11 10*3/uL; Neutrophils # 6.2 10*3/uL (1.4-7.4); Neutrophils % 74.3 % (38.7-73.9); Platelet Count 179 T/CUMM (130-400); Red Blood Count 3.73 MC/CUMM (3.8-5.5); Red Cell Distribution Width 17.7 % (9.3-17.3); White Blood Count 8.3 T/CUMM (4-12)
[2017-09-09 04:55] LABS: Calcium 8.1 MG/DL (8.5-10.1); Osmolality,Calculated 280.1 MOS/KG (273-304); Potassium 3.4 MMOL/L (3.5-5.1)
[2017-09-09] MEDS ORDERED: DEXTROSE 50% 25 GM/50 ML VIAL IV PRN (08:04)
[2017-09-09] MEDS ORDERED: CEFUROXIME INJ 1,500 MG in SYRINGE 1 EACH IV ONE (08:04)
[2017-09-09] MEDS ORDERED: GLUCAGON 1 MG VIAL IM PRN (08:04)
[2017-09-09] MEDS: ISOSORBIDE MONONITRATE 30 MG TABLET PO SCH (09:28)
[2017-09-09] MEDS: DOCUSATE SODIUM 100 MG CAPSULE PO SCH ×2 (09:29→21:14)
[2017-09-09] MEDS: PANTOPRAZOLE 40 MG TABLET PO SCH (09:30)
[2017-09-09] MEDS: cefTRIAXone 1,000 MG in SYRINGE 1 EACH IV SCH (09:30)
[2017-09-09] MEDS: MULTIVITAMIN (BEROCCA) TABLET PO SCH (09:30)
[2017-09-09] MEDS: NEBIVOLOL 5 MG TABLET PO SCH (09:30)
[2017-09-09] MEDS: NYSTATIN 500,000 UNIT/5 ML UDCUP SWISH/SWAL SCH ×4 (09:30→21:14)
[2017-09-09] MEDS: POLYETHYLENE GLYCOL POWDER 17 GM PACK PO SCH ×2 (09:30→21:14)
[2017-09-09] MEDS: SERTRALINE 100 MG TABLET PO SCH (09:30)
[2017-09-09] MEDS: LACTULOSE 20 GM/30 ML UDCUP PO SCH ×2 (09:30→21:14)
[2017-09-09] MEDS: ASPIRIN EC 81 MG TABLET PO SCH (09:30)
[2017-09-09] MEDS: FUROSEMIDE 40 MG/4 ML VIAL IV SCH ×2 (09:31→17:02)
[2017-09-09] MEDS: INSULIN LISPRO 100 UNIT/ML SUBCUT SCH ×4 (09:32→21:14)
[2017-09-09] MEDS: CHLORHEXIDINE 4% SOLN 118 ML BOTTLE TOP SCH ×3 (09:35→21:15)
[2017-09-09] MEDS: CHLORHEXIDINE 0.12% ORAL RINSE 60 ML BOTTLE SWISH/SPIT SCH ×2 (13:14→21:52)
[2017-09-09] MEDS ORDERED: SENNA 8.6 MG TABLET PO ONE (13:38)
[2017-09-09] MEDS: ROSUVASTATIN 20 MG TABLET PO SCH (21:14)
[2017-09-10] MEDS: ALBUTEROL/IPRATROPIUM 3 ML NEB RESP TX SCH ×2 (01:09→07:25)
[2017-09-10] MEDS ORDERED: PAPAVERINE 60 MG/2 ML VIAL ONE (05:20)
[2017-09-10] MEDS ORDERED: VANCOMYCIN 1,000 MG VIAL ONE ×2 (05:21→05:55)
[2017-09-10] MEDS ORDERED: IPRATROPIUM 500 MCG/2.5 ML NEB RESP TX ONE (05:30)
[2017-09-10] MEDS ORDERED: ALBUTEROL 2.5 MG/3 ML NEB RESP TX ONE (05:30)
[2017-09-10] MEDS ORDERED: FAMOTIDINE 20 MG TABLET PO ONE (05:30)
[2017-09-10] MEDS ORDERED: CEFUROXIME INJ 1,500 MG in SYRINGE 1 EACH IV ONE (05:30)
[2017-09-10] MEDS: SODIUM CHLORIDE 0.9% 1,000 ML IV SCH ×2 (05:35→10:44)
[2017-09-10] MEDS ORDERED: SUFentanil 250 MCG/5 ML AMP ONE (06:05)
[2017-09-10] MEDS ORDERED: MIDAZOLAM 10 MG/2 ML VIAL ONE (06:05)
[2017-09-10 07:27] LABS: Calcium 8.2 MG/DL (8.5-10.1); Osmolality,Calculated 289.5 MOS/KG (273-304)
[2017-09-10 07:35] LABS: ABG Base Excess 4.3 MMOL/L (-2.5-2.5); ABG HCO3 28.3 MMOL/L (20-26); ABG PCO2 40.3 MM HG (35-48); ABG PH 7.457 (7.35-7.45); ABG TCO2 25.9 MMOL/L (23-27); Glucose Heart Surgery 205 MG/DL (74-106); Hematocrit Heart Surgery 29.9 PERCENT (37-47); Hemoglobin Heart Surgery 9.7 G/DL (12.0-16.0); Ionized Calcium Arterial 1.07 MMOL/L (1.21-1.46); PCO2 Patient Temp Arterial 40.3 MMHG; PH Patient Temp Arterial 7.457; Patient Temperature 37 CELCIUS; Potassium Heart/CVR 2.8 MMOL/L (3.5-5.1); Sodium Heart/CVR 137 MMOL/L (135-145)
[2017-09-10] MEDS ORDERED: NITROPRUSSIDE 50 MG/2 ML VIAL ONE (07:50)
[2017-09-10] MEDS ORDERED: POTASSIUM CHLORIDE RIDER 100 ML IV ONE (07:51)
[2017-09-10] MEDS ORDERED: PHENYLEPHRINE DRIP 40 MG/250 ML PREMIX IV ONE (07:51)
[2017-09-10] MEDS ORDERED: CALCIUM CHLORIDE 1,000 MG/10 ML SYRINGE IV ONE (07:51)
[2017-09-10] MEDS ORDERED: ALBUMIN 5% 12.5 GM/250 ML VIAL IV ONE (07:52)
[2017-09-10] MEDS ORDERED: SODIUM BICARBONATE 50 MEQ/50 ML SYRINGE IV ONE ×2 (07:52→11:20)
[2017-09-10 10:04] LABS: Hemoglobin Heart Surgery 8.3 G/DL (12.0-16.0); PCO2 Patient Temp Venous 34.1 MM HG; PH Patient Temp Venous 7.532; PO2 Patient Temp Venous 38.2 MM HG; Potassium Heart/CVR 2.7 MMOL/L (3.5-5.1); VBG Base Excess 4.9 MEQ/L (0-4); VBG HCO3 28.7 MEQ/L (24-28); VBG Oxygen Saturation 84.1 %; VBG PCO2 38.9 MMHG (41-51); VBG PH 7.486; VBG PO2 47.2 MMHG (17-40)
[2017-09-10 10:36] LABS: Hematocrit Heart Surgery 28.1 PERCENT (37-47); Hemoglobin Heart Surgery 9.1 G/DL (12.0-16.0); PCO2 Patient Temp Venous 31.7 MM HG; PH Patient Temp Venous 7.554; PO2 Patient Temp Venous 35.2 MM HG; Potassium Heart/CVR 3.1 MMOL/L (3.5-5.1); VBG Base Excess 5.7 MEQ/L (0-4); VBG HCO3 29.3 MEQ/L (24-28); VBG Oxygen Saturation 80.6 %; VBG PCO2 33.2 MMHG (41-51); VBG PH 7.539; VBG PO2 37.8 MMHG (17-40)
[2017-09-10] MEDS: FUROSEMIDE 40 MG/4 ML VIAL IV SCH (10:44)
[2017-09-10] MEDS: ASPIRIN EC 81 MG TABLET PO SCH (10:44)
[2017-09-10] MEDS: INSULIN LISPRO 100 UNIT/ML SUBCUT SCH ×2 (10:44→10:46)
[2017-09-10] MEDS: POLYETHYLENE GLYCOL POWDER 17 GM PACK PO SCH (10:45)
[2017-09-10] MEDS: LACTULOSE 20 GM/30 ML UDCUP PO SCH (10:45)
[2017-09-10] MEDS: MULTIVITAMIN (BEROCCA) TABLET PO SCH (10:45)
[2017-09-10] MEDS: NEBIVOLOL 5 MG TABLET PO SCH (10:45)
[2017-09-10] MEDS: DOCUSATE SODIUM 100 MG CAPSULE PO SCH (10:45)
[2017-09-10] MEDS: ISOSORBIDE MONONITRATE 30 MG TABLET PO SCH (10:45)
[2017-09-10] MEDS: SERTRALINE 100 MG TABLET PO SCH (10:46)
[2017-09-10] MEDS: NYSTATIN 500,000 UNIT/5 ML UDCUP SWISH/SWAL SCH (10:46)
[2017-09-10] MEDS: CHLORHEXIDINE 0.12% ORAL RINSE 60 ML BOTTLE SWISH/SPIT SCH ×2 (10:46→21:13)
[2017-09-10] MEDS: cefTRIAXone 1,000 MG in SYRINGE 1 EACH IV SCH (10:46)
[2017-09-10] MEDS: PANTOPRAZOLE 40 MG TABLET PO SCH (10:46)
[2017-09-10] MEDS ORDERED: DEXTROSE 5% KCL 20 MEQ 20 MEQ/1,000 ML BAG IV ONE (11:20)
[2017-09-10] MEDS ORDERED: ALBUMIN 25% 25 GM/100 ML VIAL IV ONE (11:20)
[2017-09-10] MEDS ORDERED: HEPARIN 10,000 UNIT/10 ML VIAL ONE (11:20)
[2017-09-10] MEDS ORDERED: MAGNESIUM SULFATE 1 GM/2 ML VIAL ONE (11:20)
[2017-09-10] MEDS ORDERED: methylPREDNISolone SOD SUC 1,000 MG/8 ML VIAL ONE (11:20)
[2017-09-10] MEDS ORDERED: PROTAMINE SULFATE 250 MG/25 ML VIAL IV ONE (11:20)
[2017-09-10] MEDS ORDERED: POTASSIUM CHLORIDE 20 MEQ/10 ML VIAL ONE (11:21)
[2017-09-10] MEDS ORDERED: PHENYLEPHRINE DRIP 20 MG/250 ML PREMIX IV ONE (11:21)
[2017-09-10] MEDS ORDERED: MANNITOL 12.5 GM/50 ML VIAL IV ONE (11:21)
[2017-09-10] MEDS ORDERED: FUROSEMIDE 20 MG/2 ML VIAL ONE (11:21)
[2017-09-10 11:31] LABS: ABG Base Excess 3.8 MMOL/L (-2.5-2.5); ABG HCO3 27.8 MMOL/L (20-26); ABG PCO2 29.3 MM HG (35-48); ABG PH 7.554 (7.35-7.45); ABG TCO2 24.2 MMOL/L (23-27); Glucose Heart Surgery 257 MG/DL (74-106); Hematocrit Heart Surgery 24.2 PERCENT (37-47); Hemoglobin Heart Surgery 7.8 G/DL (12.0-16.0); Ionized Calcium Arterial 1.14 MMOL/L (1.21-1.46); PCO2 Patient Temp Arterial 29.3 MMHG; PH Patient Temp Arterial 7.554; Patient Temperature 37 CELCIUS; Potassium Heart/CVR 3.2 MMOL/L (3.5-5.1); Sodium Heart/CVR 135 MMOL/L (135-145)
[2017-09-10] MEDS: SODIUM CHLORIDE 0.45% 1,000 ML IV SCH ×2 (12:15)
[2017-09-10] MEDS ORDERED: NITROGLYCERIN DRIP 50 MG/250 ML BOTTLE IV ONE ×2 (12:25→15:39)
[2017-09-10] MEDS ORDERED: PROTAMINE SULFATE 50 MG/5 ML VIAL IV ONE ×2 (12:25→12:40)
[2017-09-10] MEDS ORDERED: DOBUTamine 500 MG/250 ML PREMIX IV ONE ×2 (12:25→15:38)
[2017-09-10] MEDS ORDERED: NITROGLYCERIN DRIP 50 MG/250 ML BOTTLE IV PRN (12:30)
[2017-09-10] MEDS ORDERED: ONDANSETRON 4 MG/2 ML VIAL IV PRN (12:53)
[2017-09-10] MEDS ORDERED: VECURONIUM 10 MG VIAL IV PRN ×2 (12:53)
[2017-09-10] MEDS ORDERED: CALCIUM CHLORIDE 1,000 MG/10 ML SYRINGE IV PRN (12:53)
[2017-09-10] MEDS ORDERED: DEXTROSE 50% 25 GM/50 ML VIAL IV PRN ×2 (12:53)
[2017-09-10] MEDS ORDERED: ACETAMINOPHEN 650 MG SUPP RECTAL PRN (12:53)
[2017-09-10] MEDS ORDERED: LACTATED RINGERS 250 ML IV PRN (12:53)
[2017-09-10] MEDS ORDERED: MAGNESIUM SULF RIDER 2 GM in PREMIX 1 EACH IV PRN (12:53)
[2017-09-10] MEDS ORDERED: NITROPRUSSIDE 100 MG in DEXTROSE 5% 250 ML IV PRN (12:53)
[2017-09-10] MEDS ORDERED: MORPHINE 10 MG/1 ML VIAL IV PRN (12:53)
[2017-09-10] MEDS ORDERED: INSULIN REGULAR 100 UNIT/ML IV ONE (12:53)
[2017-09-10] MEDS ORDERED: INSULIN REGULAR DRIP 100 ML IV SCH (12:53)
[2017-09-10] MEDS ORDERED: MAGNESIUM SULF RIDER 4 GM in PREMIX 1 EACH IV PRN (12:53)
[2017-09-10 12:58] LABS: ABG Base Excess 3.5 MMOL/L (-2.5-2.5); ABG HCO3 27.5 MMOL/L (20-26); ABG PCO2 32.4 MM HG (35-48); ABG PH 7.517 (7.35-7.45); ABG TCO2 24.3 MMOL/L (23-27); Glucose Heart Surgery 254 MG/DL (74-106); Hematocrit Heart Surgery 25.5 PERCENT (37-47); Hemoglobin Heart Surgery 8.2 G/DL (12.0-16.0); Potassium Heart/CVR 3.3 MMOL/L (3.5-5.1)
[2017-09-10 13:01] LABS: Basophils % 0.2 % (0.0-0.8); Eosinophils # 0.1 10*3/uL (0.0-0.87); Eosinophils % 1.3 % (0.00-10.9); Hematocrit 25.4 VOL% (35.7-47.0); Hemoglobin 8.1 GM/DL (12.0-16.0); Immature Granulocytes % 0.7 %; Immature Granulocytes Absolute 0.06 #; Lymphocytes # 1.1 10*3/uL (1.4-4.0); Lymphocytes % 12.8 % (21.3-54.2); Mean Corpuscular HGB Conc 31.9 GM/DL (32-36); Mean Corpuscular Hemoglobin 27 PG (27-34); Mean Corpuscular Volume 85.8 FL (87-102); Mean Platelet Volume 10.7 FL (9.6-12.0); Monocytes # 0.3 10*3/uL (0.11-0.8); Monocytes % 3.9 % (1.7-12.7); Neutrophils % 81.1 % (38.7-73.9); Platelet Count 141 T/CUMM (130-400); Red Blood Count 2.96 MC/CUMM (3.8-5.5); White Blood Count 8.7 T/CUMM (4-12)
[2017-09-10 13:08] LABS: INR 1.5; PT Patient Result 15.9 SECS; Partial Thromboplastin Time 30.3 SECS (0-40)
[2017-09-10] MEDS: POTASSIUM CHLORIDE RIDER 20 MEQ in PREMIX 1 EACH IV PRN ×6 (13:11→19:49)
[2017-09-10 13:24] LABS: Albumin 2.6 G/DL (3.4-5.0); Bilirubin,Total 1.1 MG/DL (0.2-1.0); Calcium 8.5 MG/DL (8.5-10.1); Osmolality,Calculated 293.4 MOS/KG (273-304); Potassium 3.3 MMOL/L (3.5-5.1); Total Protein 4.8 G/DL (6.4-8.3)
[2017-09-10 13:35] LABS: CKMB % 4.6 %
[2017-09-10 13:36] LABS: Troponin I Only 3.22 NG/ML (0.00-0.045)
[2017-09-10 14:05] LABS: ABG Base Excess 3.2 MMOL/L (-2.5-2.5); ABG HCO3 27.3 MMOL/L (20-26); ABG Oxygen Saturation 99.5 % (95-100); ABG PCO2 38.4 MM HG (35-48); ABG PH 7.457 (7.35-7.45); ABG TCO2 25.3 MMOL/L (23-27); Glucose Heart Surgery 240 MG/DL (74-106); Hematocrit Heart Surgery 24.5 PERCENT (37-47); Hemoglobin Heart Surgery 7.9 G/DL (12.0-16.0); Potassium Heart/CVR 3.3 MMOL/L (3.5-5.1)
[2017-09-10] MEDS: DOBUTamine 500 MG/250 ML PREMIX IV PRN (14:34)
[2017-09-10] MEDS: INSULIN REGULAR 100 UNIT/ML IV PRN (15:25)
[2017-09-10] MEDS ORDERED: SEVOFLURANE 1 UNIT/15 MINUTE INH ONE (15:38)
[2017-09-10] MEDS ORDERED: VECURONIUM 10 MG VIAL IV ONE (15:38)
[2017-09-10] MEDS ORDERED: HEPARIN/NACL 0.9% 2 UNITS/ML 500 ML IV ONE (15:38)
[2017-09-10] MEDS ORDERED: CALCIUM CHLORIDE 1,000 MG/10 ML VIAL IV ONE (15:38)
[2017-09-10] MEDS ORDERED: PHENYLEPHRINE 10 MG/1 ML VIAL IV ONE (15:38)
[2017-09-10] MEDS ORDERED: ePHEDrine 50 MG/ML AMP ONE (15:38)
[2017-09-10] MEDS ORDERED: TRANEXAMIC ACID 1,000 MG/10 ML VIAL IV ONE (15:38)
[2017-09-10] MEDS ORDERED: MINERAL OIL/PETROLATUM OPH OINT 3.5 GM TUBE ONE (15:38)
[2017-09-10] MEDS ORDERED: SODIUM CHLORIDE 0.9% 200 ML IV ONE (15:39)
[2017-09-10] MEDS ORDERED: SODIUM CHLORIDE 0.9% 1,000 ML IV ONE (15:39)
[2017-09-10] MEDS ORDERED: SODIUM CHLORIDE 0.9% 250 ML IV ONE (15:39)
[2017-09-10] MEDS ORDERED: LACTATED RINGERS 1,000 ML IV ONE (15:39)
[2017-09-10] MEDS ORDERED: ETOMIDATE 40 MG/20 ML VIAL IV ONE (15:39)
[2017-09-10] MEDS ORDERED: FUROSEMIDE 40 MG/4 ML VIAL IV ONE ×2 (16:00→20:00)
[2017-09-10 16:11] LABS: ABG Base Excess 1.9 MMOL/L (-2.5-2.5); ABG HCO3 26.6 MMOL/L (20-26); ABG Oxygen Saturation 98.2 % (95-100); ABG PH 7.419 (7.35-7.45); ABG PO2 129.3 MM HG (80-95); ABG TCO2 27.9 MMOL/L (23-27); Glucose Heart Surgery 199 MG/DL (74-106); Hemoglobin Heart Surgery 10.5 G/DL (12.0-16.0); Potassium Heart/CVR 3.4 MMOL/L (3.5-5.1)
[2017-09-10] MEDS ORDERED: FUROSEMIDE 40 MG/4 ML VIAL ONE (16:19)
[2017-09-10] MEDS: ALBUMIN 5% 12.5 GM in PREMIX 1 EACH IV PRN ×3 (17:33→23:02)
[2017-09-10 18:07] LABS: ABG Base Excess 0.8 MMOL/L (-2.5-2.5); ABG HCO3 25.1 MMOL/L (20-26); ABG Oxygen Saturation 99.3 % (95-100); ABG PCO2 42.1 MM HG (35-48); ABG PH 7.394 (7.35-7.45); ABG TCO2 23.4 MMOL/L (23-27); Glucose Heart Surgery 176 MG/DL (74-106); Hematocrit Heart Surgery 31.3 PERCENT (37-47); Hemoglobin Heart Surgery 10.1 G/DL (12.0-16.0)
[2017-09-10 19:34] LABS: ABG Base Excess 1.9 MMOL/L (-2.5-2.5); ABG HCO3 26.1 MMOL/L (20-26); ABG Oxygen Saturation 98.6 % (95-100); ABG PH 7.443 (7.35-7.45); ABG PO2 158.7 MM HG (80-95); ABG TCO2 27.3 MMOL/L (23-27); Glucose Heart Surgery 142 MG/DL (74-106); Hemoglobin Heart Surgery 10.8 G/DL (12.0-16.0); Potassium Heart/CVR 3.9 MMOL/L (3.5-5.1)
[2017-09-10] MEDS: CEFUROXIME INJ 1,500 MG in SYRINGE 1 EACH IV SCH (19:43)
[2017-09-10 20:30] LABS: CKMB % 3.5 %
[2017-09-10 20:32] LABS: Troponin I Only 3.4 NG/ML (0.00-0.045)
[2017-09-10] MEDS: FUROSEMIDE INJ 100 MG in SODIUM CHLORIDE 0.9% 90 ML IV SCH (21:07)
[2017-09-10] MEDS: POTASSIUM CHLORIDE RIDER 10 MEQ in PREMIX 1 EACH IV PRN (22:07)
[2017-09-11 00:27] LABS: ABG Base Excess 2.6 MMOL/L (-2.5-2.5); ABG HCO3 26.8 MMOL/L (20-26); ABG PCO2 38.8 MM HG (35-48); ABG PH 7.446 (7.35-7.45); ABG TCO2 24.2 MMOL/L (23-27); Glucose Heart Surgery 117 MG/DL (74-106); Hematocrit Heart Surgery 31.1 PERCENT (37-47); Hemoglobin Heart Surgery 10.1 G/DL (12.0-16.0); Potassium Heart/CVR 4.3 MMOL/L (3.5-5.1)
[2017-09-11] MEDS: MIDAZOLAM 2 MG/2 ML VIAL IV PRN ×2 (02:34→04:57)
[2017-09-11 04:30] LABS: ABG Base Excess 0.9 MMOL/L (-2.5-2.5); ABG HCO3 25.2 MMOL/L (20-26); ABG Oxygen Saturation 99.2 % (95-100); ABG PCO2 41.6 MM HG (35-48); ABG TCO2 23.3 MMOL/L (23-27); Glucose Heart Surgery 154 MG/DL (74-106); Hematocrit Heart Surgery 32.2 PERCENT (37-47); Hemoglobin Heart Surgery 10.4 G/DL (12.0-16.0); Potassium Heart/CVR 4.3 MMOL/L (3.5-5.1)
[2017-09-11 04:47] LABS: Basophils % 0.1 % (0.0-0.8); Hemoglobin 10.3 GM/DL (12.0-16.0); Immature Granulocytes % 0.7 %; Immature Granulocytes Absolute 0.09 #; Lymphocytes # 0.6 10*3/uL (1.4-4.0); Lymphocytes % 4.1 % (21.3-54.2); Mean Corpuscular HGB Conc 32.2 GM/DL (32-36); Mean Corpuscular Hemoglobin 28 PG (27-34); Mean Platelet Volume 11.2 FL (9.6-12.0); Monocytes # 0.2 10*3/uL (0.11-0.8); Monocytes % 1.3 % (1.7-12.7); Neutrophils # 12.8 10*3/uL (1.4-7.4); Neutrophils % 93.8 % (38.7-73.9); Platelet Count 134 T/CUMM (130-400); Red Blood Count 3.72 MC/CUMM (3.8-5.5); White Blood Count 13.6 T/CUMM (4-12)
[2017-09-11 04:54] LABS: Albumin 3.2 G/DL (3.4-5.0); Bilirubin,Direct 0.42 MG/DL (0.0-0.20); Bilirubin,Total 0.8 MG/DL (0.2-1.0); Calcium 8.7 MG/DL (8.5-10.1); Osmolality,Calculated 284.7 MOS/KG (273-304); Potassium 4.3 MMOL/L (3.5-5.1); Total Protein 5.8 G/DL (6.4-8.3)
[2017-09-11 05:10] LABS: Band Neutrophils 1 % (0-10); Lymphocytes 1 % (20-55); Segmented Neutrophils 98 % (50-85); Total Cells Counted 100
[2017-09-11 05:11] LABS: Ovalocytes Slight; Platelet Estimate Adequate
[2017-09-11] MEDS: MIDAZOLAM 10 MG/2 ML VIAL IV PRN ×2 (05:16→07:48)
[2017-09-11 05:19] LABS: CKMB % 2.9 %; Troponin I Only 3.03 NG/ML (0.00-0.045)
[2017-09-11] MEDS: FUROSEMIDE INJ 100 MG in SODIUM CHLORIDE 0.9% 90 ML IV SCH ×4 (06:49→21:20)
[2017-09-11] MEDS ORDERED: PROPOFOL 1,000 MG/100 ML BOTTLE IV ONE (07:36)
[2017-09-11] MEDS: CEFUROXIME INJ 1,500 MG in SYRINGE 1 EACH IV SCH ×2 (07:49→21:14)
[2017-09-11] MEDS: CHLORHEXIDINE 0.12% ORAL RINSE 60 ML BOTTLE SWISH/SPIT SCH ×2 (08:15→21:48)
[2017-09-11] MEDS: INSULIN REGULAR 100 UNIT/ML IV PRN (08:15)
[2017-09-11] MEDS: PROPOFOL 1,000 MG/100 ML BOTTLE IV SCH ×2 (08:20→23:17)
[2017-09-11] MEDS: DOBUTamine 500 MG/250 ML PREMIX IV PRN (11:10)
[2017-09-11] MEDS: INSULIN REGULAR 100 UNIT/ML SUBCUT SCH ×3 (12:31→19:44)
[2017-09-11 13:02] LABS: ABG Base Excess -1.2 MMOL/L (-2.5-2.5); ABG HCO3 23.4 MMOL/L (20-26); ABG Oxygen Saturation 98.3 % (95-100); ABG PCO2 51.7 MM HG (35-48); ABG PH 7.306 (7.35-7.45); ABG TCO2 23.2 MMOL/L (23-27); Glucose Heart Surgery 206 MG/DL (74-106); Hematocrit Heart Surgery 36.3 PERCENT (37-47); Hemoglobin Heart Surgery 11.8 G/DL (12.0-16.0); Potassium Heart/CVR 4.4 MMOL/L (3.5-5.1)
[2017-09-11 14:53] LABS: CKMB % 2.7 %
[2017-09-11 14:54] LABS: Troponin I Only 2.28 NG/ML (0.00-0.045)
[2017-09-11] MEDS: SODIUM CHLORIDE 0.45% 1,000 ML IV SCH ×2 (15:16)
[2017-09-11] MEDS ORDERED: FUROSEMIDE INJ 100 MG in SODIUM CHLORIDE 0.9% 90 ML IV SCH (16:00)
[2017-09-11] MEDS ORDERED: FUROSEMIDE 40 MG/4 ML VIAL ONE (17:21)
[2017-09-11] MEDS ORDERED: FUROSEMIDE 40 MG/4 ML VIAL IV ONE (17:32)
[2017-09-11] MEDS ORDERED: SODIUM CHLORIDE 0.9% 250 ML IV ONE (17:32)
[2017-09-11 19:12] LABS: Calcium 8.2 MG/DL (8.5-10.1); Osmolality,Calculated 288.7 MOS/KG (273-304); Potassium 4.3 MMOL/L (3.5-5.1)
[2017-09-11] MEDS: ROSUVASTATIN 10 MG TABLET PO SCH (21:39)
[2017-09-11] MEDS: MORPHINE 4 MG/1 ML VIAL IV PRN (22:41)
[2017-09-11 22:55] LABS: ABG Base Excess 0.7 MMOL/L (-2.5-2.5); ABG HCO3 25.1 MMOL/L (20-26); ABG Oxygen Saturation 98.4 % (95-100); ABG PCO2 47.4 MM HG (35-48); ABG PH 7.358 (7.35-7.45); ABG TCO2 24.2 MMOL/L (23-27); Glucose Heart Surgery 193 MG/DL (74-106); Hematocrit Heart Surgery 32.7 PERCENT (37-47); Hemoglobin Heart Surgery 10.6 G/DL (12.0-16.0); Potassium Heart/CVR 4.1 MMOL/L (3.5-5.1)
[2017-09-11] MEDS: POTASSIUM CHLORIDE RIDER 20 MEQ in PREMIX 1 EACH IV PRN (23:04)
[2017-09-12] MEDS: INSULIN REGULAR 100 UNIT/ML SUBCUT SCH ×7 (02:00→23:50)
[2017-09-12] MEDS: FUROSEMIDE INJ 100 MG in SODIUM CHLORIDE 0.9% 90 ML IV SCH ×5 (03:32→20:09)
[2017-09-12 04:35] LABS: Basophils % 0.1 % (0.0-0.8); Hematocrit 31.3 VOL% (35.7-47.0); Hemoglobin 9.8 GM/DL (12.0-16.0); Immature Granulocytes % 0.5 %; Immature Granulocytes Absolute 0.07 #; Lymphocytes % 6.9 % (21.3-54.2); Mean Corpuscular HGB Conc 31.3 GM/DL (32-36); Mean Corpuscular Hemoglobin 28 PG (27-34); Mean Corpuscular Volume 88.4 FL (87-102); Mean Platelet Volume 10.6 FL (9.6-12.0); Monocytes # 0.6 10*3/uL (0.11-0.8); Monocytes % 3.9 % (1.7-12.7); Neutrophils # 13.2 10*3/uL (1.4-7.4); Neutrophils % 88.6 % (38.7-73.9); Platelet Count 129 T/CUMM (130-400); Red Blood Count 3.54 MC/CUMM (3.8-5.5); Red Cell Distribution Width 17.6 % (9.3-17.3); White Blood Count 14.9 T/CUMM (4-12)
[2017-09-12 04:38] LABS: ABG Base Excess 1.3 MMOL/L (-2.5-2.5); ABG HCO3 25.6 MMOL/L (20-26); ABG PCO2 47.2 MM HG (35-48); ABG PH 7.367 (7.35-7.45); ABG TCO2 24.7 MMOL/L (23-27); Glucose Heart Surgery 151 MG/DL (74-106); Hematocrit Heart Surgery 31.3 PERCENT (37-47); Hemoglobin Heart Surgery 10.1 G/DL (12.0-16.0); Potassium Heart/CVR 3.8 MMOL/L (3.5-5.1)
[2017-09-12 05:01] LABS: Albumin 2.9 G/DL (3.4-5.0); Bilirubin,Direct 0.26 MG/DL (0.0-0.20); Bilirubin,Total 0.5 MG/DL (0.2-1.0); Calcium 8.1 MG/DL (8.5-10.1); Osmolality,Calculated 290.5 MOS/KG (273-304); Potassium 3.9 MMOL/L (3.5-5.1); Total Protein 5.2 G/DL (6.4-8.3)
[2017-09-12] MEDS: POTASSIUM CHLORIDE RIDER 20 MEQ in PREMIX 1 EACH IV PRN ×2 (06:22→10:55)
[2017-09-12 07:22] LABS: ABG Base Excess 0.6 MMOL/L (-2.5-2.5); ABG Oxygen Saturation 98.8 % (95-100); ABG PCO2 46.9 MM HG (35-48); ABG TCO2 23.8 MMOL/L (23-27); Glucose Heart Surgery 135 MG/DL (74-106); Hematocrit Heart Surgery 34.8 PERCENT (37-47); Hemoglobin Heart Surgery 11.3 G/DL (12.0-16.0); Potassium Heart/CVR 4.3 MMOL/L (3.5-5.1)
[2017-09-12] MEDS ORDERED: HEPARIN/NACL 0.9% 2 UNITS/ML 500 ML IV ONE ×2 (08:02→12:09)
[2017-09-12] MEDS: ALBUTEROL/IPRATROPIUM 3 ML NEB RESP TX SCH ×5 (08:30→23:40)
[2017-09-12] MEDS ORDERED: GLUCAGON 1 MG VIAL IM PRN (08:43)
[2017-09-12] MEDS ORDERED: DEXTROSE 50% 25 GM/50 ML VIAL IV PRN (08:43)
[2017-09-12] MEDS: SODIUM CHLORIDE 0.45% 1,000 ML IV SCH ×2 (08:54→16:08)
[2017-09-12] MEDS: CHLORHEXIDINE 0.12% ORAL RINSE 60 ML BOTTLE SWISH/SPIT SCH ×2 (09:10→20:31)
[2017-09-12] MEDS: PROPOFOL 1,000 MG/100 ML BOTTLE IV SCH (09:22)
[2017-09-12] MEDS: DOBUTamine 500 MG/250 ML PREMIX IV PRN (09:23)
[2017-09-12] MEDS: NEBIVOLOL 5 MG TABLET PO SCH (09:48)
[2017-09-12 10:25] LABS: ABG Base Excess 0.4 MMOL/L (-2.5-2.5); ABG HCO3 24.8 MMOL/L (20-26); ABG PCO2 49.2 MM HG (35-48); ABG PH 7.343 (7.35-7.45); ABG TCO2 24.2 MMOL/L (23-27); Glucose Heart Surgery 136 MG/DL (74-106); Hematocrit Heart Surgery 33.7 PERCENT (37-47); Hemoglobin Heart Surgery 10.9 G/DL (12.0-16.0)
[2017-09-12] MEDS: MORPHINE 4 MG/1 ML VIAL IV PRN ×2 (14:08→20:01)
[2017-09-12] MEDS: ROSUVASTATIN 10 MG TABLET PO SCH (20:31)
[2017-09-12] MEDS: SERTRALINE 100 MG TABLET PO SCH (20:31)
[2017-09-13] MEDS: FUROSEMIDE INJ 100 MG in SODIUM CHLORIDE 0.9% 90 ML IV SCH ×2 (00:05→06:58)
[2017-09-13] MEDS ORDERED: AMIODARONE INJ 150 MG in DEXTROSE 5% 100 ML IV ONE (00:40)
[2017-09-13] MEDS ORDERED: AMIODARONE 150 MG/3 ML VIAL ONE (00:43)
[2017-09-13] MEDS ORDERED: CLORAZEPATE 3.75 MG TABLET PO PRN (00:56)
[2017-09-13] MEDS ORDERED: AMIODARONE INJ 450 MG in DEXTROSE 5% 241 ML IV SCH (01:00)
[2017-09-13 01:22] LABS: Basophils % 0.1 % (0.0-0.8); Eosinophils # 0.1 10*3/uL (0.0-0.87); Eosinophils % 0.8 % (0.00-10.9); Hematocrit 35.5 VOL% (35.7-47.0); Hemoglobin 10.9 GM/DL (12.0-16.0); Immature Granulocytes % 0.4 %; Immature Granulocytes Absolute 0.06 #; Lymphocytes % 6.8 % (21.3-54.2); Mean Corpuscular HGB Conc 30.7 GM/DL (32-36); Mean Corpuscular Hemoglobin 28 PG (27-34); Mean Corpuscular Volume 90.3 FL (87-102); Mean Platelet Volume 10.6 FL (9.6-12.0); Monocytes # 0.6 10*3/uL (0.11-0.8); Monocytes % 4.1 % (1.7-12.7); Neutrophils # 12.7 10*3/uL (1.4-7.4); Neutrophils % 87.8 % (38.7-73.9); Platelet Count 124 T/CUMM (130-400); Red Blood Count 3.93 MC/CUMM (3.8-5.5); Red Cell Distribution Width 18.1 % (9.3-17.3); White Blood Count 14.5 T/CUMM (4-12)
[2017-09-13 01:46] LABS: Albumin 3.2 G/DL (3.4-5.0); Bilirubin,Direct 0.25 MG/DL (0.0-0.20); Bilirubin,Total 0.5 MG/DL (0.2-1.0); Calcium 8.1 MG/DL (8.5-10.1); Osmolality,Calculated 289.7 MOS/KG (273-304); Potassium 3.8 MMOL/L (3.5-5.1); Total Protein 5.9 G/DL (6.4-8.3)
[2017-09-13] MEDS: POTASSIUM CHLORIDE RIDER 20 MEQ in PREMIX 1 EACH IV PRN ×2 (02:40→10:37)
[2017-09-13] MEDS: ALBUTEROL/IPRATROPIUM 3 ML NEB RESP TX SCH ×6 (03:00→23:50)
[2017-09-13 04:49] LABS: ABG Base Excess -0.8 MMOL/L (-2.5-2.5); ABG HCO3 23.8 MMOL/L (20-26); ABG Oxygen Saturation 96.3 % (95-100); ABG PCO2 55.5 MM HG (35-48); ABG PO2 87.5 MM HG (80-95); ABG TCO2 24.4 MMOL/L (23-27)
[2017-09-13] MEDS: INSULIN REGULAR 100 UNIT/ML SUBCUT SCH ×5 (05:09→20:11)
[2017-09-13] MEDS: SODIUM CHLORIDE 0.45% 1,000 ML IV SCH ×2 (06:55→14:13)
[2017-09-13] MEDS: AMIODARONE INJ 450 MG in DEXTROSE 5% 241 ML IV SCH ×2 (07:29→22:37)
[2017-09-13] MEDS: FUROSEMIDE 40 MG/4 ML VIAL IV SCH ×2 (07:59→17:10)
[2017-09-13] MEDS: CHLORHEXIDINE 0.12% ORAL RINSE 60 ML BOTTLE SWISH/SPIT SCH ×2 (08:00→21:23)
[2017-09-13 08:35] LABS: Apearance,Urine Slightly Hazy (Clear); Bacteria,Urine Occasional /HPF (Few); Bilirubin,Urine Negative (Negative); Blood, Urine Large mg/dL (Negative); Glucose,Urine (UA) Negative (Negative); Hyaline Casts,Urine 46 /LPF (0-3); Ketones,Urine Negative (Negative); Mucus,Urine Occasional /LPF (Occasional); Nitrite,Urine Negative (Negative); Protein,Urine 30 MG/DL; RBC,Urine 62 /HPF (0-4); Squamous Epithelial Cell,Urine Occasional /HPF (0-10); Urine Color Yellow (Yellow); Urine Specific Gravity 1.012 (1.001-1.035); Urine Urobilinogen < 2.0 EU/DL (0.2-1.0); WBC,Urine 5 /HPF (0-6)
[2017-09-13] MEDS: HALOPERIDOL 1 MG TABLET PO SCH ×3 (10:08→21:22)
[2017-09-13] MEDS: NEBIVOLOL 5 MG TABLET PO SCH ×2 (10:08→12:31)
[2017-09-13] MEDS: guaiFENesin 200 MG/10 ML UDCUP PO PRN ×2 (17:13→21:07)
[2017-09-13] MEDS: ROSUVASTATIN 10 MG TABLET PO SCH (21:22)
[2017-09-13] MEDS: SERTRALINE 100 MG TABLET PO SCH (21:23)
[2017-09-13] MEDS: MORPHINE 4 MG/1 ML VIAL IV PRN (21:23)
[2017-09-14] MEDS: MORPHINE 4 MG/1 ML VIAL IV PRN ×2 (01:50→13:20)
[2017-09-14] MEDS: ALBUTEROL/IPRATROPIUM 3 ML NEB RESP TX SCH ×5 (04:07→19:12)
[2017-09-14 04:40] LABS: Allen Test Positive
[2017-09-14 04:44] LABS: ABG Base Excess -4.1 MMOL/L (-2.5-2.5); ABG HCO3 24.1 MMOL/L (20-26); ABG Oxygen Saturation 96.2 % (95-100); ABG PCO2 58.2 MM HG (35-48); ABG PH 7.235 (7.35-7.45); ABG PO2 92.7 MM HG (80-95); ABG TCO2 25.9 MMOL/L (23-27)
[2017-09-14 05:16] LABS: Basophils % 0.1 % (0.0-0.8); Eosinophils % 0.1 % (0.00-10.9); Hematocrit 39.4 VOL% (35.7-47.0); Immature Granulocytes % 0.5 %; Immature Granulocytes Absolute 0.08 #; Mean Corpuscular HGB Conc 30.5 GM/DL (32-36); Mean Corpuscular Hemoglobin 28 PG (27-34); Mean Corpuscular Volume 90.6 FL (87-102); Mean Platelet Volume 11.4 FL (9.6-12.0); Monocytes # 0.8 10*3/uL (0.11-0.8); Monocytes % 5.1 % (1.7-12.7); Neutrophils # 12.7 10*3/uL (1.4-7.4); Neutrophils % 87.2 % (38.7-73.9); Platelet Count 156 T/CUMM (130-400); Red Blood Count 4.35 MC/CUMM (3.8-5.5); Red Cell Distribution Width 18.2 % (9.3-17.3); White Blood Count 14.6 T/CUMM (4-12)
[2017-09-14 05:49] LABS: Calcium 8.4 MG/DL (8.5-10.1); Potassium 4.5 MMOL/L (3.5-5.1)
[2017-09-14] MEDS: POTASSIUM CHLORIDE RIDER 20 MEQ in PREMIX 1 EACH IV PRN (06:36)
[2017-09-14] MEDS: HALOPERIDOL 1 MG TABLET PO SCH ×2 (08:04→21:04)
[2017-09-14] MEDS: NEBIVOLOL 5 MG TABLET PO SCH (08:04)
[2017-09-14] MEDS: FUROSEMIDE 40 MG/4 ML VIAL IV SCH ×2 (08:04→16:32)
[2017-09-14] MEDS: ASPIRIN EC 81 MG TABLET PO SCH (08:05)
[2017-09-14] MEDS: CHLORHEXIDINE 0.12% ORAL RINSE 60 ML BOTTLE SWISH/SPIT SCH ×2 (08:05→21:05)
[2017-09-14] MEDS: INSULIN REGULAR 100 UNIT/ML SUBCUT SCH ×4 (08:05→21:07)
[2017-09-14] MEDS ORDERED: AMIODARONE 200 MG TABLET PO SCH (09:00)
[2017-09-14] MEDS: AMIODARONE 200 MG TABLET PO SCH ×2 (11:44→21:04)
[2017-09-14] MEDS: APIXABAN 2.5 MG TABLET PO SCH ×2 (12:48→21:04)
[2017-09-14] MEDS: SODIUM CHLORIDE 0.45% 1,000 ML IV SCH (12:48)
[2017-09-14 16:24] LABS: ABG Base Excess -8.6 MMOL/L (-2.5-2.5); ABG HCO3 17.5 MMOL/L (20-26); ABG Oxygen Saturation 96.2 % (95-100); ABG PCO2 62.1 MM HG (35-48); ABG TCO2 19.9 MMOL/L (23-27)
[2017-09-14 16:32] LABS: ABG PH 7.148 (7.35-7.45)
[2017-09-14] MEDS ORDERED: ETOMIDATE 20 MG/10 ML VIAL IV ONE ×2 (16:44→16:49)
[2017-09-14] MEDS ORDERED: LIDOCAINE 2% 20 ML VIAL ONE (16:45)
[2017-09-14] MEDS ORDERED: SUCCINYLCHOLINE 200 MG/10 ML VIAL ONE (16:45)
[2017-09-14] MEDS ORDERED: SUCCINYLCHOLINE 200 MG/10 ML VIAL IV ONE (16:49)
[2017-09-14] MEDS ORDERED: LIDOCAINE 2% 20 ML VIAL MISC INJ ONE (16:49)
[2017-09-14] MEDS ORDERED: PROPOFOL 1,000 MG/100 ML BOTTLE IV ONE (18:00)
[2017-09-14] MEDS: PROPOFOL 1,000 MG/100 ML BOTTLE IV SCH (18:10)
[2017-09-14 18:16] LABS: ABG Base Excess -6.1 MMOL/L (-2.5-2.5); ABG HCO3 19.5 MMOL/L (20-26); ABG Oxygen Saturation 99.9 % (95-100); ABG PCO2 46.4 MM HG (35-48); ABG PH 7.265 (7.35-7.45)
[2017-09-14] MEDS: PHENYLEPHRINE DRIP 40 MG/250 ML PREMIX IV PRN ×2 (18:21→22:56)
[2017-09-14] MEDS ORDERED: SODIUM BICARBONATE 50 MEQ/50 ML SYRINGE IV ONE ×2 (18:35→18:38)
[2017-09-14] MEDS: ROSUVASTATIN 10 MG TABLET PO SCH (21:04)
[2017-09-14] MEDS: SERTRALINE 100 MG TABLET PO SCH (21:05)
[2017-09-15] MEDS: ALBUTEROL/IPRATROPIUM 3 ML NEB RESP TX SCH ×7 (00:15→23:57)
[2017-09-15 03:43] LABS: Basophils % 0.1 % (0.0-0.8); Eosinophils % 0.2 % (0.00-10.9); Hematocrit 37.3 VOL% (35.7-47.0); Hemoglobin 11.7 GM/DL (12.0-16.0); Immature Granulocytes % 0.6 %; Lymphocytes # 1.5 10*3/uL (1.4-4.0); Mean Corpuscular HGB Conc 31.4 GM/DL (32-36); Mean Corpuscular Hemoglobin 28 PG (27-34); Mean Platelet Volume 11.2 FL (9.6-12.0); Monocytes # 0.9 10*3/uL (0.11-0.8); Monocytes % 5.5 % (1.7-12.7); Neutrophils # 13.7 10*3/uL (1.4-7.4); Neutrophils % 84.6 % (38.7-73.9); Platelet Count 175 T/CUMM (130-400); Red Blood Count 4.19 MC/CUMM (3.8-5.5); Red Cell Distribution Width 18.1 % (9.3-17.3); White Blood Count 16.2 T/CUMM (4-12)
[2017-09-15 04:02] LABS: ABG HCO3 23.8 MMOL/L (20-26); ABG Oxygen Saturation 99.2 % (95-100); ABG PCO2 40.2 MM HG (35-48); ABG PO2 229.1 MM HG (80-95); Allen Test Positive; Pt O2 Delivery Device Ventilator
[2017-09-15 04:43] LABS: Calcium 8.5 MG/DL (8.5-10.1); Potassium 4.6 MMOL/L (3.5-5.1)
[2017-09-15] MEDS ORDERED: ALBUMIN 25% 25 GM in PREMIX 1 EACH IV ONE (07:05)
[2017-09-15] MEDS: PHENYLEPHRINE DRIP 40 MG/250 ML PREMIX IV PRN ×3 (07:17→19:31)
[2017-09-15] MEDS: FUROSEMIDE 40 MG/4 ML VIAL IV SCH ×2 (08:36→15:42)
[2017-09-15] MEDS: HALOPERIDOL 1 MG TABLET PO SCH ×2 (08:36→20:47)
[2017-09-15] MEDS: NEBIVOLOL 5 MG TABLET PO SCH (08:37)
[2017-09-15] MEDS: AMIODARONE 200 MG TABLET PO SCH ×2 (08:37→20:47)
[2017-09-15] MEDS: CHLORHEXIDINE 0.12% ORAL RINSE 60 ML BOTTLE SWISH/SPIT SCH ×2 (08:37→20:48)
[2017-09-15] MEDS: APIXABAN 2.5 MG TABLET PO SCH ×2 (08:37→21:30)
[2017-09-15] MEDS: ASPIRIN EC 81 MG TABLET PO SCH (08:37)
[2017-09-15] MEDS: INSULIN REGULAR 100 UNIT/ML SUBCUT SCH ×2 (12:11→17:23)
[2017-09-15] MEDS: PROPOFOL 1,000 MG/100 ML BOTTLE IV SCH (12:40)
[2017-09-15] MEDS: ALBUMIN 25% 25 GM in PREMIX 1 EACH IV SCH ×2 (14:00→17:24)
[2017-09-15] MEDS: SERTRALINE 100 MG TABLET PO SCH (20:47)
[2017-09-15] MEDS: ROSUVASTATIN 10 MG TABLET PO SCH (20:47)
[2017-09-16] MEDS: PROPOFOL 1,000 MG/100 ML BOTTLE IV SCH (02:01)
[2017-09-16] MEDS: PHENYLEPHRINE DRIP 40 MG/250 ML PREMIX IV PRN ×2 (02:01→17:00)
[2017-09-16] MEDS: INSULIN REGULAR 100 UNIT/ML SUBCUT SCH ×4 (02:19→20:05)
[2017-09-16] MEDS: ALBUTEROL/IPRATROPIUM 3 ML NEB RESP TX SCH ×5 (03:51→19:07)
[2017-09-16 04:03] LABS: ABG HCO3 22.9 MMOL/L (20-26); ABG Oxygen Saturation 98.9 % (95-100); ABG PCO2 35.4 MM HG (35-48); ABG PH 7.429 (7.35-7.45); ABG PO2 166.7 MM HG (80-95); Allen Test Positive; Pt O2 Delivery Device Ventilator
[2017-09-16 05:32] LABS: Basophils % 0.2 % (0.0-0.8); Eosinophils # 0.3 10*3/uL (0.0-0.87); Eosinophils % 2.4 % (0.00-10.9); Hematocrit 33.7 VOL% (35.7-47.0); Hemoglobin 10.8 GM/DL (12.0-16.0); Immature Granulocytes % 0.5 %; Immature Granulocytes Absolute 0.07 #; Lymphocytes # 1.6 10*3/uL (1.4-4.0); Lymphocytes % 11.9 % (21.3-54.2); Mean Corpuscular Hemoglobin 28 PG (27-34); Mean Corpuscular Volume 86.6 FL (87-102); Monocytes # 0.7 10*3/uL (0.11-0.8); Neutrophils # 10.5 10*3/uL (1.4-7.4); Platelet Count 178 T/CUMM (130-400); Red Blood Count 3.89 MC/CUMM (3.8-5.5); Red Cell Distribution Width 18.1 % (9.3-17.3); White Blood Count 13.1 T/CUMM (4-12)
[2017-09-16 06:00] LABS: Calcium 8.5 MG/DL (8.5-10.1); Osmolality,Calculated 295.5 MOS/KG (273-304); Potassium 3.9 MMOL/L (3.5-5.1)
[2017-09-16] MEDS: FUROSEMIDE 40 MG/4 ML VIAL IV SCH ×2 (09:21→20:07)
[2017-09-16] MEDS: ALBUMIN 25% 12.5 GM in PREMIX 1 EACH IV SCH ×2 (09:24→16:39)
[2017-09-16] MEDS: DIGOXIN 0.5 MG/2 ML AMP IV SCH ×3 (09:25→21:51)
[2017-09-16] MEDS: DOBUTamine 500 MG/250 ML PREMIX IV SCH (09:25)
[2017-09-16] MEDS: HALOPERIDOL 1 MG TABLET PO SCH ×2 (09:54→21:52)
[2017-09-16] MEDS: NEBIVOLOL 5 MG TABLET PO SCH (09:54)
[2017-09-16] MEDS: ASPIRIN EC 81 MG TABLET PO SCH (09:55)
[2017-09-16] MEDS: CHLORHEXIDINE 0.12% ORAL RINSE 60 ML BOTTLE SWISH/SPIT SCH ×2 (09:55→21:53)
[2017-09-16] MEDS: AMIODARONE 200 MG TABLET PO SCH ×2 (09:55→21:52)
[2017-09-16] MEDS: APIXABAN 2.5 MG TABLET PO SCH ×2 (09:55→21:52)
[2017-09-16] MEDS: MORPHINE 4 MG/1 ML VIAL IV PRN (20:09)
[2017-09-16] MEDS: ROSUVASTATIN 10 MG TABLET PO SCH (21:52)
[2017-09-16] MEDS: SERTRALINE 100 MG TABLET PO SCH (21:52)
[2017-09-17] MEDS: ALBUTEROL/IPRATROPIUM 3 ML NEB RESP TX SCH ×6 (00:42→19:25)
[2017-09-17] MEDS: INSULIN REGULAR 100 UNIT/ML SUBCUT SCH ×5 (01:18→23:43)
[2017-09-17 04:16] LABS: ABG HCO3 24.4 MMOL/L (20-26); ABG Oxygen Saturation 99.1 % (95-100); ABG PCO2 41.1 MM HG (35-48); ABG TCO2 22.6 MMOL/L (23-27); Allen Test Positive; Pt O2 Delivery Device Ventilator
[2017-09-17 05:04] LABS: Basophils % 0.1 % (0.0-0.8); Eosinophils # 0.3 10*3/uL (0.0-0.87); Eosinophils % 2.7 % (0.00-10.9); Hematocrit 32.2 VOL% (35.7-47.0); Hemoglobin 10.3 GM/DL (12.0-16.0); Immature Granulocytes % 0.6 %; Immature Granulocytes Absolute 0.07 #; Lymphocytes # 0.9 10*3/uL (1.4-4.0); Mean Corpuscular Hemoglobin 28 PG (27-34); Mean Corpuscular Volume 88.2 FL (87-102); Mean Platelet Volume 10.6 FL (9.6-12.0); Monocytes # 0.4 10*3/uL (0.11-0.8); Monocytes % 3.5 % (1.7-12.7); Neutrophils # 9.2 10*3/uL (1.4-7.4); Neutrophils % 85.1 % (38.7-73.9); Platelet Count 147 T/CUMM (130-400); Red Blood Count 3.65 MC/CUMM (3.8-5.5); Red Cell Distribution Width 17.8 % (9.3-17.3); White Blood Count 10.8 T/CUMM (4-12)
[2017-09-17] MEDS: PROPOFOL 1,000 MG/100 ML BOTTLE IV SCH ×2 (05:46→18:21)
[2017-09-17 05:50] LABS: Osmolality,Calculated 300.3 MOS/KG (273-304); Potassium 3.5 MMOL/L (3.5-5.1)
[2017-09-17] MEDS: FUROSEMIDE 40 MG/4 ML VIAL IV SCH ×2 (08:18→16:02)
[2017-09-17] MEDS: AMIODARONE 200 MG TABLET PO SCH ×2 (08:19→21:50)
[2017-09-17] MEDS: ASPIRIN EC 81 MG TABLET PO SCH (08:19)
[2017-09-17] MEDS: APIXABAN 2.5 MG TABLET PO SCH ×2 (08:19→21:52)
[2017-09-17] MEDS: HALOPERIDOL 1 MG TABLET PO SCH ×2 (08:19→21:51)
[2017-09-17] MEDS: NEBIVOLOL 5 MG TABLET PO SCH (08:19)
[2017-09-17] MEDS: CHLORHEXIDINE 0.12% ORAL RINSE 60 ML BOTTLE SWISH/SPIT SCH ×2 (08:27→21:53)
[2017-09-17] MEDS: MORPHINE 4 MG/1 ML VIAL IV PRN (09:05)
[2017-09-17] MEDS: ALBUMIN 25% 25 GM in PREMIX 1 EACH IV SCH ×2 (11:42→16:03)
[2017-09-17] MEDS: DOBUTamine 500 MG/250 ML PREMIX IV SCH (11:45)
[2017-09-17] MEDS: NYSTATIN POWDER 15 GM BOTTLE TOP SCH ×2 (11:47→21:54)
[2017-09-17] MEDS: ROSUVASTATIN 10 MG TABLET PO SCH (21:51)
[2017-09-17] MEDS: SERTRALINE 100 MG TABLET PO SCH (21:52)
[2017-09-18] MEDS: ALBUTEROL/IPRATROPIUM 3 ML NEB RESP TX SCH ×7 (00:20→23:22)
[2017-09-18 04:43] LABS: Basophils % 0.3 % (0.0-0.8); Eosinophils # 0.5 10*3/uL (0.0-0.87); Eosinophils % 4.9 % (0.00-10.9); Hematocrit 31.4 VOL% (35.7-47.0); Hemoglobin 9.8 GM/DL (12.0-16.0); Immature Granulocytes % 0.6 %; Immature Granulocytes Absolute 0.06 #; Lymphocytes # 0.7 10*3/uL (1.4-4.0); Lymphocytes % 7.2 % (21.3-54.2); Mean Corpuscular HGB Conc 31.2 GM/DL (32-36); Mean Corpuscular Hemoglobin 27 PG (27-34); Mean Corpuscular Volume 87.5 FL (87-102); Mean Platelet Volume 10.6 FL (9.6-12.0); Monocytes # 0.4 10*3/uL (0.11-0.8); Monocytes % 3.5 % (1.7-12.7); Neutrophils # 8.6 10*3/uL (1.4-7.4); Neutrophils % 83.5 % (38.7-73.9); Platelet Count 148 T/CUMM (130-400); Red Blood Count 3.59 MC/CUMM (3.8-5.5); Red Cell Distribution Width 17.6 % (9.3-17.3); White Blood Count 10.3 T/CUMM (4-12)
[2017-09-18 05:14] LABS: Calcium 8.2 MG/DL (8.5-10.1); Osmolality,Calculated 304.8 MOS/KG (273-304); Potassium 2.9 MMOL/L (3.5-5.1)
[2017-09-18 05:19] LABS: Prealbumin 9.4 MG/DL (20-40)
[2017-09-18] MEDS: PROPOFOL 1,000 MG/100 ML BOTTLE IV SCH (05:32)
[2017-09-18] MEDS: INSULIN REGULAR 100 UNIT/ML SUBCUT SCH ×4 (05:41→23:31)
[2017-09-18 07:13] LABS: Allen Test Positive; Pt O2 Delivery Device Ventilator
[2017-09-18 07:15] LABS: ABG Base Excess 6.7 MMOL/L (-2.5-2.5); ABG HCO3 30.6 MMOL/L (20-26); ABG Oxygen Saturation 98.1 % (95-100); ABG PCO2 41.4 MM HG (35-48); ABG PH 7.487 (7.35-7.45); ABG PO2 124.4 MM HG (80-95); ABG TCO2 31.9 MMOL/L (23-27)
[2017-09-18] MEDS: ALBUMIN 25% 25 GM in PREMIX 1 EACH IV SCH ×2 (07:55→16:35)
[2017-09-18] MEDS: HALOPERIDOL 1 MG TABLET PO SCH ×3 (08:11→21:58)
[2017-09-18] MEDS: NEBIVOLOL 5 MG TABLET PO SCH (08:12)
[2017-09-18] MEDS: ASPIRIN CHEW 81 MG TABLET PO SCH (08:12)
[2017-09-18] MEDS: AMIODARONE 200 MG TABLET PO SCH ×3 (08:12→21:59)
[2017-09-18] MEDS: APIXABAN 2.5 MG TABLET PO SCH ×3 (08:12→22:00)
[2017-09-18] MEDS: NYSTATIN POWDER 15 GM BOTTLE TOP SCH ×2 (08:18→21:23)
[2017-09-18] MEDS: CHLORHEXIDINE 0.12% ORAL RINSE 60 ML BOTTLE SWISH/SPIT SCH ×2 (08:19→21:22)
[2017-09-18] MEDS: POTASSIUM CHLORIDE RIDER 20 MEQ in PREMIX 1 EACH IV PRN ×5 (08:36→23:22)
[2017-09-18] MEDS: FUROSEMIDE 40 MG/4 ML VIAL IV SCH ×2 (08:50→17:28)
[2017-09-18 18:26] LABS: ABG HCO3 27.1 MMOL/L (20-26); ABG Oxygen Saturation 98.6 % (95-100); ABG PCO2 58.3 MM HG (35-48); ABG PH 7.326 (7.35-7.45); ABG TCO2 27.6 MMOL/L (23-27); Allen Test Positive
[2017-09-18] MEDS: ROSUVASTATIN 10 MG TABLET PO SCH ×2 (21:22→21:59)
[2017-09-18] MEDS: SERTRALINE 100 MG TABLET PO SCH ×2 (21:22→21:59)
[2017-09-19] MEDS: ALBUTEROL/IPRATROPIUM 3 ML NEB RESP TX SCH ×6 (03:33→23:54)
[2017-09-19 04:39] LABS: Basophils % 0.3 % (0.0-0.8); Eosinophils # 0.4 10*3/uL (0.0-0.87); Hematocrit 35.1 VOL% (35.7-47.0); Hemoglobin 10.8 GM/DL (12.0-16.0); Immature Granulocytes % 0.8 %; Immature Granulocytes Absolute 0.09 #; Lymphocytes # 0.9 10*3/uL (1.4-4.0); Lymphocytes % 8.4 % (21.3-54.2); Mean Corpuscular HGB Conc 30.8 GM/DL (32-36); Mean Corpuscular Hemoglobin 28 PG (27-34); Mean Corpuscular Volume 89.5 FL (87-102); Monocytes # 0.4 10*3/uL (0.11-0.8); Monocytes % 3.9 % (1.7-12.7); Neutrophils # 8.8 10*3/uL (1.4-7.4); Neutrophils % 82.6 % (38.7-73.9); Platelet Count 148 T/CUMM (130-400); Red Blood Count 3.92 MC/CUMM (3.8-5.5); Red Cell Distribution Width 18.6 % (9.3-17.3); White Blood Count 10.7 T/CUMM (4-12)
[2017-09-19 05:15] LABS: Albumin 4.1 G/DL (3.4-5.0); Bilirubin,Total 1.7 MG/DL (0.2-1.0); Calcium 8.4 MG/DL (8.5-10.1); Osmolality,Calculated 300.8 MOS/KG (273-304); Potassium 3.4 MMOL/L (3.5-5.1)
[2017-09-19 05:18] LABS: Calcium 8.1 MG/DL (8.5-10.1); Osmolality,Calculated 302.8 MOS/KG (273-304); Potassium 3.5 MMOL/L (3.5-5.1)
[2017-09-19 05:21] LABS: ABG Base Excess 4.3 MMOL/L (-2.5-2.5); ABG HCO3 28.2 MMOL/L (20-26); ABG Oxygen Saturation 95.6 % (95-100); ABG PCO2 55.7 MM HG (35-48); ABG PH 7.355 (7.35-7.45); ABG PO2 79.2 MM HG (80-95); ABG TCO2 28.3 MMOL/L (23-27); Allen Test Positive; Pt O2 Delivery Device CPAP
[2017-09-19] MEDS: POTASSIUM CHLORIDE RIDER 20 MEQ in PREMIX 1 EACH IV PRN ×2 (05:28→10:37)
[2017-09-19] MEDS: INSULIN REGULAR 100 UNIT/ML SUBCUT SCH ×3 (05:30→18:14)
[2017-09-19] MEDS: NEBIVOLOL 5 MG TABLET PO SCH (08:32)
[2017-09-19] MEDS: APIXABAN 2.5 MG TABLET PO SCH ×2 (08:32→21:58)
[2017-09-19] MEDS: HALOPERIDOL 1 MG TABLET PO SCH ×2 (08:32→21:58)
[2017-09-19] MEDS: AMIODARONE 200 MG TABLET PO SCH ×2 (08:33→21:58)
[2017-09-19] MEDS: CHLORHEXIDINE 0.12% ORAL RINSE 60 ML BOTTLE SWISH/SPIT SCH ×2 (08:33→21:59)
[2017-09-19] MEDS: ASPIRIN CHEW 81 MG TABLET PO SCH (08:33)
[2017-09-19] MEDS: NYSTATIN POWDER 15 GM BOTTLE TOP SCH ×2 (08:33→21:59)
[2017-09-19] MEDS: FUROSEMIDE 40 MG/4 ML VIAL IV SCH ×2 (08:33→15:23)
[2017-09-19] MEDS: POTASSIUM CHLORIDE RIDER 10 MEQ in PREMIX 1 EACH IV PRN (11:38)
[2017-09-19] MEDS: ROSUVASTATIN 10 MG TABLET PO SCH (21:58)
[2017-09-19] MEDS: SERTRALINE 100 MG TABLET PO SCH (21:58)
[2017-09-19] MEDS: MORPHINE 4 MG/1 ML VIAL IV PRN (23:06)
[2017-09-20] MEDS: INSULIN REGULAR 100 UNIT/ML SUBCUT SCH ×4 (00:03→18:21)
[2017-09-20 02:56] LABS: ABG Base Excess 2.5 MMOL/L (-2.5-2.5); ABG HCO3 26.6 MMOL/L (20-26); ABG Oxygen Saturation 97.4 % (95-100); ABG PCO2 63.7 MM HG (35-48); ABG PH 7.293 (7.35-7.45); ABG PO2 98.5 MM HG (80-95); ABG TCO2 27.8 MMOL/L (23-27); Allen Test Positive; Pt O2 Delivery Device Venturi Mask
[2017-09-20] MEDS: ALBUTEROL/IPRATROPIUM 3 ML NEB RESP TX SCH ×6 (03:59→23:16)
[2017-09-20 06:24] LABS: Basophils % 0.4 % (0.0-0.8); Eosinophils # 0.2 10*3/uL (0.0-0.87); Eosinophils % 1.8 % (0.00-10.9); Hematocrit 35.9 VOL% (35.7-47.0); Immature Granulocytes % 0.6 %; Immature Granulocytes Absolute 0.06 #; Lymphocytes # 0.7 10*3/uL (1.4-4.0); Lymphocytes % 6.6 % (21.3-54.2); Mean Corpuscular HGB Conc 30.6 GM/DL (32-36); Mean Corpuscular Hemoglobin 27 PG (27-34); Mean Corpuscular Volume 89.5 FL (87-102); Monocytes # 0.6 10*3/uL (0.11-0.8); Monocytes % 5.2 % (1.7-12.7); Neutrophils % 85.4 % (38.7-73.9); Platelet Count 159 T/CUMM (130-400); Red Blood Count 4.01 MC/CUMM (3.8-5.5); White Blood Count 10.5 T/CUMM (4-12)
[2017-09-20 06:36] LABS: Calcium 7.9 MG/DL (8.5-10.1); Calcium 8.2 MG/DL (8.5-10.1); Osmolality,Calculated 311.8 MOS/KG (273-304); Osmolality,Calculated 315.6 MOS/KG (273-304); Potassium 4.1 MMOL/L (3.5-5.1)
[2017-09-20 06:41] LABS: Prealbumin 9.7 MG/DL (20-40)
[2017-09-20] MEDS: FUROSEMIDE 40 MG/4 ML VIAL IV SCH ×2 (08:20→15:14)
[2017-09-20] MEDS: APIXABAN 2.5 MG TABLET PO SCH ×2 (08:21→21:21)
[2017-09-20] MEDS: NEBIVOLOL 5 MG TABLET PO SCH (08:21)
[2017-09-20] MEDS: AMIODARONE 200 MG TABLET PO SCH ×2 (08:21→21:21)
[2017-09-20] MEDS: HALOPERIDOL 1 MG TABLET PO SCH ×2 (08:21→21:22)
[2017-09-20] MEDS: ASPIRIN CHEW 81 MG TABLET PO SCH (08:21)
[2017-09-20] MEDS: NYSTATIN POWDER 15 GM BOTTLE TOP SCH ×2 (08:27→21:22)
[2017-09-20] MEDS: CHLORHEXIDINE 0.12% ORAL RINSE 60 ML BOTTLE SWISH/SPIT SCH ×2 (08:27→21:22)
[2017-09-20] MEDS: LINEZOLID INJ 600 MG in PREMIX 1 EACH IV SCH ×2 (10:10→21:23)
[2017-09-20] MEDS: PIPERACILLIN/TAZOBACTAM 3,375 MG in SODIUM CHLORIDE 0.9% 100 ML IV SCH ×2 (10:35→18:21)
[2017-09-20] MEDS: SERTRALINE 100 MG TABLET PO SCH (21:22)
[2017-09-20] MEDS: ROSUVASTATIN 10 MG TABLET PO SCH (21:22)
[2017-09-21] MEDS: INSULIN REGULAR 100 UNIT/ML SUBCUT SCH ×4 (00:01→18:39)
[2017-09-21] MEDS: ALBUTEROL/IPRATROPIUM 3 ML NEB RESP TX SCH ×6 (03:15→23:22)
[2017-09-21 03:22] LABS: ABG Base Excess 4.9 MMOL/L (-2.5-2.5); ABG HCO3 28.8 MMOL/L (20-26); ABG PCO2 66.6 MM HG (35-48); ABG PH 7.308 (7.35-7.45); ABG PO2 94.9 MM HG (80-95); ABG TCO2 30.2 MMOL/L (23-27); Allen Test Positive
[2017-09-21] MEDS: PIPERACILLIN/TAZOBACTAM 3,375 MG in SODIUM CHLORIDE 0.9% 100 ML IV SCH ×3 (04:19→18:39)
[2017-09-21 06:14] LABS: Basophils # 0.1 10*3/uL (0.0-0.2); Basophils % 0.5 % (0.0-0.8); Eosinophils # 0.5 10*3/uL (0.0-0.87); Eosinophils % 3.6 % (0.00-10.9); Hematocrit 35.5 VOL% (35.7-47.0); Hemoglobin 10.6 GM/DL (12.0-16.0); Immature Granulocytes % 0.6 %; Immature Granulocytes Absolute 0.08 #; Lymphocytes # 0.9 10*3/uL (1.4-4.0); Lymphocytes % 6.3 % (21.3-54.2); Mean Corpuscular HGB Conc 29.9 GM/DL (32-36); Mean Corpuscular Hemoglobin 28 PG (27-34); Mean Corpuscular Volume 92.2 FL (87-102); Mean Platelet Volume 11.5 FL (9.6-12.0); Monocytes # 0.7 10*3/uL (0.11-0.8); Monocytes % 5.1 % (1.7-12.7); Neutrophils # 11.8 10*3/uL (1.4-7.4); Neutrophils % 83.9 % (38.7-73.9); Platelet Count 157 T/CUMM (130-400); Red Blood Count 3.85 MC/CUMM (3.8-5.5); White Blood Count 14.1 T/CUMM (4-12)
[2017-09-21 06:31] LABS: Calcium 7.8 MG/DL (8.5-10.1); Osmolality,Calculated 313.6 MOS/KG (273-304); Osmolality,Calculated 317.4 MOS/KG (273-304); Potassium 3.7 MMOL/L (3.5-5.1); Potassium 3.8 MMOL/L (3.5-5.1)
[2017-09-21] MEDS: POTASSIUM CHLORIDE RIDER 20 MEQ in PREMIX 1 EACH IV PRN (08:59)
[2017-09-21] MEDS: HALOPERIDOL 1 MG TABLET PO SCH ×2 (09:00→21:41)
[2017-09-21] MEDS: AMIODARONE 200 MG TABLET PO SCH ×2 (09:00→21:32)
[2017-09-21] MEDS: NEBIVOLOL 5 MG TABLET PO SCH (09:00)
[2017-09-21] MEDS: APIXABAN 2.5 MG TABLET PO SCH ×2 (09:00→21:32)
[2017-09-21] MEDS: FUROSEMIDE 40 MG/4 ML VIAL IV SCH ×2 (09:01→17:41)
[2017-09-21] MEDS: ASPIRIN CHEW 81 MG TABLET PO SCH (09:01)
[2017-09-21] MEDS: LINEZOLID INJ 600 MG in PREMIX 1 EACH IV SCH ×2 (09:06→21:38)
[2017-09-21] MEDS: CHLORHEXIDINE 0.12% ORAL RINSE 60 ML BOTTLE SWISH/SPIT SCH ×2 (09:07→21:33)
[2017-09-21] MEDS: NYSTATIN POWDER 15 GM BOTTLE TOP SCH ×2 (09:07→21:33)
[2017-09-21] MEDS: ROSUVASTATIN 10 MG TABLET PO SCH (21:32)
[2017-09-21] MEDS: SERTRALINE 100 MG TABLET PO SCH (21:32)
[2017-09-22] MEDS: INSULIN REGULAR 100 UNIT/ML SUBCUT SCH ×5 (00:33→23:47)
[2017-09-22] MEDS: ALBUTEROL/IPRATROPIUM 3 ML NEB RESP TX SCH ×6 (03:27→23:23)
[2017-09-22 04:26] LABS: Basophils # 0.1 10*3/uL (0.0-0.2); Basophils % 0.5 % (0.0-0.8); Eosinophils # 0.6 10*3/uL (0.0-0.87); Eosinophils % 3.7 % (0.00-10.9); Hematocrit 36.2 VOL% (35.7-47.0); Hemoglobin 11.2 GM/DL (12.0-16.0); Immature Granulocytes % 0.7 %; Lymphocytes # 0.9 10*3/uL (1.4-4.0); Lymphocytes % 6.2 % (21.3-54.2); Mean Corpuscular HGB Conc 30.9 GM/DL (32-36); Mean Corpuscular Hemoglobin 28 PG (27-34); Mean Corpuscular Volume 89.2 FL (87-102); Mean Platelet Volume 11.4 FL (9.6-12.0); Monocytes # 0.6 10*3/uL (0.11-0.8); Monocytes % 4.2 % (1.7-12.7); Neutrophils # 12.8 10*3/uL (1.4-7.4); Neutrophils % 84.7 % (38.7-73.9); Platelet Count 167 T/CUMM (130-400); Red Blood Count 4.06 MC/CUMM (3.8-5.5); Red Cell Distribution Width 19.2 % (9.3-17.3); White Blood Count 15.1 T/CUMM (4-12)
[2017-09-22 04:56] LABS: Calcium 8.3 MG/DL (8.5-10.1); Osmolality,Calculated 316.4 MOS/KG (273-304); Potassium 3.9 MMOL/L (3.5-5.1)
[2017-09-22] MEDS: PIPERACILLIN/TAZOBACTAM 3,375 MG in SODIUM CHLORIDE 0.9% 100 ML IV SCH ×3 (04:59→18:29)
[2017-09-22 05:10] LABS: Calcium 8.1 MG/DL (8.5-10.1); Osmolality,Calculated 306.1 MOS/KG (273-304); Potassium 4.3 MMOL/L (3.5-5.1)
[2017-09-22] MEDS: ASPIRIN CHEW 81 MG TABLET PO SCH (09:05)
[2017-09-22] MEDS: NEBIVOLOL 5 MG TABLET PO SCH (09:05)
[2017-09-22] MEDS: CHLORHEXIDINE 0.12% ORAL RINSE 60 ML BOTTLE SWISH/SPIT SCH ×2 (09:05→22:10)
[2017-09-22] MEDS: AMIODARONE 200 MG TABLET PO SCH ×2 (09:05→22:10)
[2017-09-22] MEDS: HALOPERIDOL 1 MG TABLET PO SCH ×2 (09:05→22:09)
[2017-09-22] MEDS: APIXABAN 2.5 MG TABLET PO SCH ×2 (09:05→22:09)
[2017-09-22] MEDS: LINEZOLID INJ 600 MG in PREMIX 1 EACH IV SCH ×2 (09:05→22:24)
[2017-09-22] MEDS: NYSTATIN POWDER 15 GM BOTTLE TOP SCH ×2 (09:06→22:10)
[2017-09-22] MEDS: FUROSEMIDE 40 MG/4 ML VIAL IV SCH ×2 (09:06→16:50)
[2017-09-22] MEDS: ROSUVASTATIN 10 MG TABLET PO SCH (22:09)
[2017-09-22] MEDS: SERTRALINE 100 MG TABLET PO SCH (22:09)
[2017-09-23] MEDS: ALBUTEROL/IPRATROPIUM 3 ML NEB RESP TX SCH ×6 (02:55→23:53)
[2017-09-23] MEDS: PIPERACILLIN/TAZOBACTAM 3,375 MG in SODIUM CHLORIDE 0.9% 100 ML IV SCH ×3 (04:14→18:15)
[2017-09-23 05:36] LABS: Basophils # 0.1 10*3/uL (0.0-0.2); Basophils % 0.6 % (0.0-0.8); Eosinophils # 0.7 10*3/uL (0.0-0.87); Eosinophils % 4.2 % (0.00-10.9); Hematocrit 33.6 VOL% (35.7-47.0); Hemoglobin 10.5 GM/DL (12.0-16.0); Immature Granulocytes % 0.6 %; Immature Granulocytes Absolute 0.09 #; Lymphocytes # 0.9 10*3/uL (1.4-4.0); Lymphocytes % 5.5 % (21.3-54.2); Mean Corpuscular HGB Conc 31.3 GM/DL (32-36); Mean Corpuscular Hemoglobin 28 PG (27-34); Mean Corpuscular Volume 90.1 FL (87-102); Mean Platelet Volume 11.6 FL (9.6-12.0); Monocytes # 0.6 10*3/uL (0.11-0.8); Monocytes % 3.8 % (1.7-12.7); Neutrophils # 13.4 10*3/uL (1.4-7.4); Neutrophils % 85.3 % (38.7-73.9); Platelet Count 168 T/CUMM (130-400); Red Blood Count 3.73 MC/CUMM (3.8-5.5); Red Cell Distribution Width 19.1 % (9.3-17.3); White Blood Count 15.6 T/CUMM (4-12)
[2017-09-23] MEDS: INSULIN REGULAR 100 UNIT/ML SUBCUT SCH ×3 (05:57→18:14)
[2017-09-23 06:03] LABS: Calcium 8.4 MG/DL (8.5-10.1); Osmolality,Calculated 315.6 MOS/KG (273-304); Potassium 3.7 MMOL/L (3.5-5.1)
[2017-09-23] MEDS: FUROSEMIDE 40 MG/4 ML VIAL IV SCH ×2 (09:54→16:08)
[2017-09-23] MEDS: LINEZOLID INJ 600 MG in PREMIX 1 EACH IV SCH ×2 (09:57→22:14)
[2017-09-23] MEDS: ENOXAPARIN 30 MG/0.3 ML SYRINGE SUBCUT SCH (09:57)
[2017-09-23] MEDS: POTASSIUM CHLORIDE RIDER 20 MEQ in PREMIX 1 EACH IV PRN (09:58)
[2017-09-23] MEDS: CHLORHEXIDINE 0.12% ORAL RINSE 60 ML BOTTLE SWISH/SPIT SCH ×2 (09:59→22:14)
[2017-09-23] MEDS: ASPIRIN CHEW 81 MG TABLET PO SCH (09:59)
[2017-09-23] MEDS: HALOPERIDOL 1 MG TABLET PO SCH ×2 (09:59→22:13)
[2017-09-23] MEDS: NEBIVOLOL 5 MG TABLET PO SCH (09:59)
[2017-09-23] MEDS: NYSTATIN POWDER 15 GM BOTTLE TOP SCH ×2 (10:00→22:14)
[2017-09-23] MEDS: APIXABAN 2.5 MG TABLET PO SCH (10:16)
[2017-09-23] MEDS: AMIODARONE 200 MG TABLET PO SCH (10:16)
[2017-09-23] MEDS: ROSUVASTATIN 10 MG TABLET PO SCH (22:13)
[2017-09-23] MEDS: SERTRALINE 100 MG TABLET PO SCH (22:13)
[2017-09-24] MEDS: INSULIN REGULAR 100 UNIT/ML SUBCUT SCH ×5 (00:51→23:28)
[2017-09-24] MEDS: ALBUTEROL/IPRATROPIUM 3 ML NEB RESP TX SCH ×6 (03:37→23:51)
[2017-09-24] MEDS: PIPERACILLIN/TAZOBACTAM 3,375 MG in SODIUM CHLORIDE 0.9% 100 ML IV SCH ×3 (04:43→18:23)
[2017-09-24 04:48] LABS: Basophils # 0.1 10*3/uL (0.0-0.2); Basophils % 0.6 % (0.0-0.8); Eosinophils # 0.7 10*3/uL (0.0-0.87); Eosinophils % 4.7 % (0.00-10.9); Hematocrit 35.1 VOL% (35.7-47.0); Hemoglobin 10.5 GM/DL (12.0-16.0); Immature Granulocytes % 0.5 %; Immature Granulocytes Absolute 0.08 #; Lymphocytes # 0.9 10*3/uL (1.4-4.0); Lymphocytes % 5.7 % (21.3-54.2); Mean Corpuscular HGB Conc 29.9 GM/DL (32-36); Mean Corpuscular Hemoglobin 28 PG (27-34); Mean Corpuscular Volume 93.4 FL (87-102); Mean Platelet Volume 11.3 FL (9.6-12.0); Monocytes # 0.6 10*3/uL (0.11-0.8); Monocytes % 3.9 % (1.7-12.7); Neutrophils # 13.2 10*3/uL (1.4-7.4); Neutrophils % 84.6 % (38.7-73.9); Platelet Count 176 T/CUMM (130-400); Red Blood Count 3.76 MC/CUMM (3.8-5.5); Red Cell Distribution Width 19.5 % (9.3-17.3); White Blood Count 15.6 T/CUMM (4-12)
[2017-09-24 05:17] LABS: Calcium 8.3 MG/DL (8.5-10.1); Osmolality,Calculated 314.6 MOS/KG (273-304); Potassium 3.8 MMOL/L (3.5-5.1)
[2017-09-24 05:44] LABS: Prealbumin 10.8 MG/DL (20-40)
[2017-09-24] MEDS: LINEZOLID INJ 600 MG in PREMIX 1 EACH IV SCH ×2 (09:19→22:08)
[2017-09-24] MEDS: ENOXAPARIN 30 MG/0.3 ML SYRINGE SUBCUT SCH (09:20)
[2017-09-24] MEDS: NEBIVOLOL 5 MG TABLET PO SCH (09:21)
[2017-09-24] MEDS: ASPIRIN CHEW 81 MG TABLET PO SCH (09:22)
[2017-09-24] MEDS: FUROSEMIDE 40 MG/4 ML VIAL IV SCH ×2 (09:22→15:10)
[2017-09-24] MEDS: HALOPERIDOL 1 MG TABLET PO SCH ×2 (09:22→22:06)
[2017-09-24] MEDS: NYSTATIN POWDER 15 GM BOTTLE TOP SCH ×2 (09:22→22:08)
[2017-09-24] MEDS: CHLORHEXIDINE 0.12% ORAL RINSE 60 ML BOTTLE SWISH/SPIT SCH ×2 (09:22→22:07)
[2017-09-24] MEDS: AMIODARONE 200 MG TABLET PO SCH (09:22)
[2017-09-24] MEDS ORDERED: FLUCONAZOLE 150 MG TABLET PO ONE (14:00)
[2017-09-24] MEDS: SERTRALINE 100 MG TABLET PO SCH (22:07)
[2017-09-24] MEDS: CLOTRIMAZOLE 1% CREAM 15 GM TUBE TOP SCH (22:07)
[2017-09-24] MEDS: ROSUVASTATIN 10 MG TABLET PO SCH (22:07)
[2017-09-25] MEDS: ALBUTEROL/IPRATROPIUM 3 ML NEB RESP TX SCH ×6 (03:49→23:48)
[2017-09-25] MEDS: PIPERACILLIN/TAZOBACTAM 3,375 MG in SODIUM CHLORIDE 0.9% 100 ML IV SCH ×3 (03:52→18:23)
[2017-09-25 05:18] LABS: Basophils # 0.1 10*3/uL (0.0-0.2); Basophils % 0.8 % (0.0-0.8); Eosinophils # 0.5 10*3/uL (0.0-0.87); Eosinophils % 3.6 % (0.00-10.9); Hematocrit 34.9 VOL% (35.7-47.0); Hemoglobin 10.6 GM/DL (12.0-16.0); Immature Granulocytes % 0.4 %; Immature Granulocytes Absolute 0.06 #; Lymphocytes # 0.9 10*3/uL (1.4-4.0); Lymphocytes % 6.5 % (21.3-54.2); Mean Corpuscular HGB Conc 30.4 GM/DL (32-36); Mean Corpuscular Hemoglobin 28 PG (27-34); Mean Corpuscular Volume 92.1 FL (87-102); Mean Platelet Volume 11.4 FL (9.6-12.0); Monocytes # 0.5 10*3/uL (0.11-0.8); Monocytes % 3.6 % (1.7-12.7); Neutrophils # 11.7 10*3/uL (1.4-7.4); Neutrophils % 85.1 % (38.7-73.9); Platelet Count 179 T/CUMM (130-400); Red Blood Count 3.79 MC/CUMM (3.8-5.5); Red Cell Distribution Width 19.5 % (9.3-17.3); White Blood Count 13.7 T/CUMM (4-12)
[2017-09-25 05:50] LABS: Calcium 8.6 MG/DL (8.5-10.1); Osmolality,Calculated 324.1 MOS/KG (273-304); Potassium 3.9 MMOL/L (3.5-5.1)
[2017-09-25] MEDS: INSULIN REGULAR 100 UNIT/ML SUBCUT SCH ×3 (06:33→18:22)
[2017-09-25] MEDS ORDERED: FUROSEMIDE 20 MG/2 ML VIAL IV SCH (08:00)
[2017-09-25] MEDS: ASPIRIN CHEW 81 MG TABLET PO SCH (08:38)
[2017-09-25] MEDS: AMIODARONE 200 MG TABLET PO SCH (08:38)
[2017-09-25] MEDS: HALOPERIDOL 1 MG TABLET PO SCH ×2 (08:38→21:24)
[2017-09-25] MEDS: LINEZOLID INJ 600 MG in PREMIX 1 EACH IV SCH (08:39)
[2017-09-25] MEDS: ENOXAPARIN 30 MG/0.3 ML SYRINGE SUBCUT SCH (08:39)
[2017-09-25] MEDS: NEBIVOLOL 5 MG TABLET PO SCH (08:39)
[2017-09-25] MEDS: CLOTRIMAZOLE 1% CREAM 15 GM TUBE TOP SCH ×2 (11:07→21:24)
[2017-09-25] MEDS: CHLORHEXIDINE 0.12% ORAL RINSE 60 ML BOTTLE SWISH/SPIT SCH ×2 (11:08→21:24)
[2017-09-25] MEDS: NYSTATIN POWDER 15 GM BOTTLE TOP SCH ×2 (11:11→21:24)
[2017-09-25] MEDS: LINEZOLID 600 MG TABLET PO SCH (21:24)
[2017-09-25] MEDS: SERTRALINE 100 MG TABLET PO SCH (21:24)
[2017-09-25] MEDS: ROSUVASTATIN 10 MG TABLET PO SCH (21:25)
[2017-09-26] MEDS: INSULIN REGULAR 100 UNIT/ML SUBCUT SCH ×4 (00:06→18:36)
[2017-09-26] MEDS: PIPERACILLIN/TAZOBACTAM 3,375 MG in SODIUM CHLORIDE 0.9% 100 ML IV SCH ×3 (03:50→19:17)
[2017-09-26] MEDS: ALBUTEROL/IPRATROPIUM 3 ML NEB RESP TX SCH ×5 (04:10→19:41)
[2017-09-26 06:05] LABS: Basophils # 0.1 10*3/uL (0.0-0.2); Basophils % 0.8 % (0.0-0.8); Eosinophils # 0.5 10*3/uL (0.0-0.87); Eosinophils % 3.3 % (0.00-10.9); Hematocrit 35.9 VOL% (35.7-47.0); Hemoglobin 10.8 GM/DL (12.0-16.0); Immature Granulocytes % 0.6 %; Immature Granulocytes Absolute 0.08 #; Lymphocytes # 1.4 10*3/uL (1.4-4.0); Mean Corpuscular HGB Conc 30.1 GM/DL (32-36); Mean Corpuscular Hemoglobin 28 PG (27-34); Mean Corpuscular Volume 92.1 FL (87-102); Mean Platelet Volume 11.7 FL (9.6-12.0); Monocytes # 0.6 10*3/uL (0.11-0.8); Monocytes % 4.5 % (1.7-12.7); Neutrophils # 11.5 10*3/uL (1.4-7.4); Neutrophils % 80.8 % (38.7-73.9); Platelet Count 198 T/CUMM (130-400); Red Cell Distribution Width 19.6 % (9.3-17.3); White Blood Count 14.2 T/CUMM (4-12)
[2017-09-26 06:19] LABS: Calcium 8.5 MG/DL (8.5-10.1); Osmolality,Calculated 326.3 MOS/KG (273-304); Potassium 4.4 MMOL/L (3.5-5.1)
[2017-09-26] MEDS: ENOXAPARIN 30 MG/0.3 ML SYRINGE SUBCUT SCH (08:02)
[2017-09-26] MEDS: LINEZOLID 600 MG TABLET PO SCH (08:03)
[2017-09-26] MEDS: NEBIVOLOL 5 MG TABLET PO SCH (08:03)
[2017-09-26] MEDS: CHLORHEXIDINE 0.12% ORAL RINSE 60 ML BOTTLE SWISH/SPIT SCH (08:03)
[2017-09-26] MEDS: NYSTATIN POWDER 15 GM BOTTLE TOP SCH (08:03)
[2017-09-26] MEDS: ASPIRIN CHEW 81 MG TABLET PO SCH (08:03)
[2017-09-26] MEDS: AMIODARONE 200 MG TABLET PO SCH (08:03)
[2017-09-26] MEDS: CLOTRIMAZOLE 1% CREAM 15 GM TUBE TOP SCH (08:03)
[2017-09-26] MEDS: HALOPERIDOL 1 MG TABLET PO SCH (08:28)
[2017-09-26] MEDS ORDERED: DOPamine 800 MG/250 ML PREMIX IV ONE (17:57)
[2017-09-26] MEDS ORDERED: DOPamine 800 MG/250 ML PREMIX IV PRN (18:07)
[2017-09-26] MEDS ORDERED: MORPHINE 4 MG/1 ML VIAL IV PRN (19:09)
[2017-09-27 02:51] VITALS: BP 64/17
== END 2017-09-27 03:22 | disposition expired | DRG 233 ==
LOC: N.ED 11:22 → N.EDINP 16:52 → SUATTDRO 16:52 → N.EDINP 09-04 13:20 → N.2E 09-04 13:30 → N.CVR 09-10 08:20 → N.ICU 09-12 11:39
PROVIDERS: ADMIT Internal Medicine
PROC: CLCCHCL (ICD-10-PCS; 2017-09-06 13:15)